=== PATIENT | male | born 1990 | race Caucasian/White ===

== ENCOUNTER 2016-08-26 19:09 | Emergency (ER) | payer MEDICARE, OTHER ==
[~2016-08-26] VITALS: Ht 167.6 cm; Wt 93.4 kg
[~2016-08-26 19:09] MED LIST: DIVA500T PO; TOPI200T7 PO
[2016-08-26 19:30] VITALS: BP 160/110; PULSE 95; RESP 20; TEMP 99.1; O2SAT 100
--- NOTE | 2016-08-26 21:00 | PD ---
HPI Chief Complaint: Musculoskeletal Complaint Time Seen by Provider: 21:00 Travel History International Travel<30 days: No Contact w/Intl Traveler<30days: No Traveled to known affect area: No History of Present Illness HPI 25-year-old male with PMH of seizure disorder secondary to "inoperable brain tumor" presents to the ED for evaluation of 2 day history of dental pain. Patient states that he had a seizure 2 days ago and landed, striking his face in the process. States that since that time he has had pain in the front teeth that radiates towards the right ear. He denies fever or chills, malocclusion, neck pain, numbness, tingling, weakness of the extremities. He endorses chronic headaches, no worsened over the last few days. He states that he is out of Depakote and Topamax. States that he has not taken his medications for approximately 3 weeks due to difficulties finding a primary care provider. Denies other chronic health problems, takes no daily medications. NKDA. PFSH Past Medical History Cancer: Yes (BRAIN) Seizures: Yes Influenza Vaccination: No Past Surgical History Other Surgery: Yes (SX TO BRAIN FOR TUMOR) Social History Alcohol Use: No Tobacco Use: Yes (1/2 ppd) Substance Use: No Allergies-Medications (Allergen,Severity, Reaction): Coded Allergies: No Known Allergies (Unverified , 05/16/16) Reported Meds & Prescriptions Reported Meds & Active Scripts Active Magic Mouthwash Adult Liq (Multi-Ingredient Mouthwash/Gargle) 120 Ml Susp 10 Ml SWISH-SWAL ACHS Each 5mL contains: Nystatin 200,000units, Diphenhydramine 4.25mg, Viscous Lidocaine 10mg, Haque syrup 0.8 mL Ibuprofen 800 Mg Tab 800 Mg PO Q8H PRN Divalproex DR (Divalproex Sodium) 500 Mg Tabdr 500 Mg PO TID Clindamycin (Clindamycin HCl) 300 Mg Cap 300 Mg PO Q6H 10 Days Topiramate 200 Mg Tab 200 Mg PO BID Divalproex DR (Divalproex Sodium) 500 Mg Tabdr 1,000 Mg PO HS Divalproex DR (Divalproex Sodium) 500 Mg Tabdr 500 Mg PO DAILY Review of Systems Except as stated in HPI: all other systems reviewed are Neg Physical Exam Narrative GENERAL: Well-nourished, well-developed white male in no acute distress. Sitting up in bed, chatting with his visitor. SKIN: Warm and dry. Thorough evaluation reveals no edema, ecchymosis, abrasion , or laceration of the skin. HEAD: Normocephalic. Atraumatic. No raccoon eyes or archuleta sign. No tenderness to palpation of the facial bones or skull. No bony step-offs. No malocclusion of the teeth. EYES: No scleral icterus. No injection or drainage. PERRLA. EOMI. ENT: Pearly trinh tympanic membrane is bilaterally. Nasal mucosa is moist. Oropharynx without erythema, edema or exudate. DENTAL: Terrible dentition overall. There are several dental caries and teeth eroded to the gumline. Teeth 8 and 9 are completely black. The gingiva surrounding tooth 8 is tender, mildly erythematous with a scant amount of purulent drainage present. No mobility of the alveolar ridge. NECK: Supple, trachea midline. No JVD or lymphadenopathy. No midline tenderness to palpation. Patient retains full, active, painless range of motion of the neck. CARDIOVASCULAR: Regular rate and rhythm without murmurs, gallops, or rubs. 2+ DP and radial pulses bilaterally. RESPIRATORY: Breath sounds clear and equal bilaterally. No accessory muscle use. GASTROINTESTINAL: Abdomen soft, non-tender, nondistended. + Bowel sounds MUSCULOSKELETAL: No cyanosis, or edema. No tenderness to palpation or limitations to range of motion of the joints of the upper and lower extremities bilaterally. NEUROLOGICAL: Awake and alert. Cranial nerves II through XII intact. Motor and sensory grossly within normal limits. 5/5 muscle strength in all muscle groups. Normal speech. BACK: Nontender without obvious deformity. No CVA tenderness. No midline tenderness. Data Data Last Documented VS Vital Signs Date Time Temp Pulse Resp B/P Pulse Ox O2 Delivery O2 Flow Rate FiO2 08/26/16 19:30 99.1 95 20 160/110 100 Orders Topiramate (Topamax) (08/26/16 21:14) Valproic Acid (Depakene) (08/26/16 21:14) Clindamycin (Cleocin) (08/26/16 21:15) Tramadol (Ultram) (08/26/16 21:15) Labs Laboratory Tests Test 08/26/16 21:30 Valproic Acid (Depakene) Level LESS THAN 3 MCG/ML MDM Medical Decision Making Medical Screen Exam Complete: Yes Emergency Medical Condition: Yes Differential Diagnosis facial fracture versus dental abscess versus medication noncompliance versus other Narrative Course 25-year-old male with PMH of seizure disorder secondary to "inoperable brain tumor" presents to the ED for evaluation of 2 day history of dental pain. Patient states that he had a seizure 2 days ago and landed, striking his face in the process. States that since that time he has had pain in the front teeth that radiates towards the right ear. He denies fever or chills, malocclusion, neck pain, numbness, tingling, weakness of the extremities. He endorses chronic headaches, no worsened over the last few days. He states that he is out of Depakote and Topamax. Vitals reviewed. Physical exam reveals terrible overall dentition. There are several dental caries in teeth eroded to the gumline. Teeth 8 and 9 are completely black. The gingiva surrounding tooth 8 is mildly erythematous, tender, there is scant amount of purulent drainage present. No mobility of the alveolar ridge. Physical exam is otherwise completely unremarkable. I offered the patient radiological studies of the facial bones which he collided this time. Topamax and Depakote levels were drawn, however these results will not be available in a timely fashion. I discussed the situation with Dr. De La Rosa who recommended writing one week's prescription for Depakote and having the patient follow-up with the PCP. Patient was administered a single dose of clindamycin and tramadol in the ED. He is described 300 mg clindamycin 4 times a day 10 days. Also prescribed a short course of anti-inflammatory medications He was provided information about the patient assistance program and community resources for dental treatment. Patient is instructed take the medications as prescribed, follow up with the patient assistance program as discussed. Patient is mother indicated understanding of instructions and are amenable to plan of care. Patient stable discharge home. Diagnosis Primary Impression: Seizure disorder Additional Impression: Dental abscess Referrals: Dentist Neurologist Primary Care Physician Patient Instructions: Dental Abscess (ED), General Instructions, Recurrent Seizures in Adults (ED) Additional Instructions: Rest, hydrate. Take all antibiotics as prescribed, even your symptoms resolved. 800 ibuprofen up to 3 times a day as needed for pain. Magic mouthwash swish and swallow or spit 3-4 times a day as needed for pain. Take Depakote as prescribed. Follow-up with the patient assistance program as discussed. Follow-up with the dentist as discussed. Return to the ED for any urgent or emergent medical condition. Med/Other Pt SpecificInfo: Prescription(s) given Scripts Wgonqnng-Gzyoxszhdlxxuuv-Ywdfphwyi Liq (Magic Mouthwash Adult Liq)120 Ml Susp10 Ml SWISH-SWAL ACHS #120 ML Ref 0 Each 5mL contains: Nystatin 200,000units, Diphenhydramine 4.25mg, Viscous Lidocaine 10mg, Haque syrup 0.8 mL Prov:Olegario De La Rosa MD 08/26/16 Ibuprofen 800 Mg [id number] Mg PO Q8H PRN (Pain/Inflammation) #20 TAB Ref 0 Prov:Olegario De La Rosa MD 08/26/[address] 500 Mg [id number] Mg PO TID #21 TAB Ref 0 Prov:Olegario De La Rosa MD 08/26/16 Clindamycin 300 Mg [id number] Mg PO Q6H 10 Days Ref 0 Prov:Olegario De La Rosa MD 08/26/16 Disposition: 01 DISCHARGE HOME Condition: Stable Gina Cortes Aug 26, 2016 21:00
[2016-08-26] MEDS ORDERED: traMADol HCL 50 MG TAB PO ONE (21:15)
[2016-08-26] MEDS ORDERED: CLINDAMYCIN 150 MG CAP PO SCH (21:15)
[2016-08-26] MEDS ORDERED: IBUP800T23 PO (21:52)
[2016-08-26] MEDS ORDERED: DIVA500T PO (21:52)
[2016-08-26] MEDS ORDERED: CLIN1CAP6 PO (21:52)
[2016-08-26] MEDS ORDERED: MAGICADU2 SWISH-SWAL (21:53)
== END 2016-08-26 22:02 | disposition home or self-care (01) ==
LOC: PHED 19:09 → PHEFT 22:02
DX: R56.9 Unspecified convulsions (principal); K04.7 Periapical abscess without sinus; C71.9 Malignant neoplasm of brain, unspecified
CPT/HCPCS: 80164; 80201; 99283

== ENCOUNTER 2017-02-26 17:48 | Inpatient (IN) | payer MEDICARE, OTHER ==
[~2017-02-26] VITALS: Ht 167.6 cm; Wt 89.9 kg
[~2017-02-26 17:48] MED LIST changes: +CLIN1CAP6 PO; +IBUP800T23 PO; +MAGICADU2 SWISH-SWAL
[2017-02-26 18:17] VITALS: BP 124/79; PULSE 124; RESP 16; TEMP 98.2; O2SAT 96
[2017-02-26] MEDS ORDERED: SODIUM CHLOR 0.9% 1000 ML INJ 1,000 ML IV ONE (18:30)
[2017-02-26] MEDS ORDERED: SODIUM CHLORIDE 0.9% FLUSH 10 ML FLUSH IVF PRN (18:30)
[2017-02-26] MEDS ORDERED: LORazepam 2 MG/ML VIAL IVS ONE (18:30)
[2017-02-26] MEDS ORDERED: DEXAMETHASONE SOD PHOS 20 MG/5 ML VIAL IV PUSH ONE (18:30)
--- NOTE | 2017-02-26 18:30 | PD ---
HPI Chief Complaint: Seizure Time Seen by Provider: 18:20 Travel History International Travel<30 days: No Contact w/Intl Traveler<30days: No Traveled to known affect area: No History of Present Illness HPI 26-year-old male brought into the emergency Department with history of seizures and witnessed grand mal seizure earlier today. 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 Patient en route to [place] in 2016 and recently was seen by Dr. Fagan. Patient is currently on Decadron 4 mg 3 times a day as well as Divalproex DR (Divalproex Sodium) 500 Mg Tabdr 500 Mg PO TID with an additional 500 at daily at bedtime. Patient continues to have daily headaches and is also on Topamax 200 mg twice a day. Patient denies any specific injury but continues to have generalized body aches and headache status post seizure. He smokes approximately half a pack per day which she has for the past 17 years. Patient had a recent MRI on January 16, 2017. Patient has been referred to the neurosurgeon for possible tumor resection. He has no known drug allergies. PFSH Past Medical History Cancer: Yes (BRAIN) Diminished Hearing: No Seizures: Yes Tetanus Vaccination: Unknown Influenza Vaccination: No ?: Not Past Surgical History Other Surgery: Yes (SX x2 BRAIN FOR TUMOR) Social History Alcohol Use: No Tobacco Use: Yes (1/2 ppd) Substance Use: No Allergies-Medications (Allergen,Severity, Reaction): Coded Allergies: morphine (Unverified Allergy, Unknown, Nausea/Vomiting, 02/27/17) PER PATIENT levetiracetam (Verified Adverse Reaction, Intermediate, patient states worsen seizures, 02/26/17) Reported Meds & Prescriptions Reported Meds & Active Scripts Active Reported [seizure med] Review of Systems Except as stated in HPI: all other systems reviewed are Neg General / Constitutional: No: Fever, Chills Eyes: Positive: Blurred Vision (which she says is typical status post seizure.) , No: Diploplia, Photophobia, Drainage, Redness, Foreign Body Sensation, Pain, Tearing, Blind Spots, Visual changes, Blindness HENT: No: Headaches Cardiovascular: No: Chest Pain or Discomfort Respiratory: No: Shortness of Breath Gastrointestinal: No: Abdominal Pain Genitourinary: No: Dysuria Musculoskeletal: No: Pain Skin: No Rash Neurologic: No: Weakness Psychiatric: No: Depression Endocrine: No: Polydipsia Hematologic/Lymphatic: No: Easy Bruising Physical Exam Exam Limitations: Poor Historian Narrative GENERAL: Patient appears in no acute distress. He is mildly postictal. He is alert and oriented 3. SKIN: Warm and dry. Normal color. Normal turgor. No obvious signs of trauma. HEAD: Atraumatic. Normocephalic. Nontender. EYES: Pupils equal and round. No scleral icterus. No injection or drainage. ENT: No nasal bleeding or discharge. Mucous membranes pink and moist. Poor dental health, but no acute signs of injury to the oral cavity or tongue. NECK: Trachea midline. No bony tenderness or step-off. Range of motion is full and supple. CARDIOVASCULAR: Regular rate and rhythm. RESPIRATORY: No accessory muscle use. Clear to auscultation. Breath sounds equal bilaterally. GASTROINTESTINAL: Abdomen soft, non-tender, nondistended. Hepatic and splenic margins not palpable. MUSCULOSKELETAL: Extremities without clubbing, cyanosis, or edema. No obvious deformities. NEUROLOGICAL: Awake and alert. No obvious cranial nerve deficits. Motor grossly within normal limits. Five out of 5 muscle strength in the arms and legs. Normal speech. PSYCHIATRIC: Appropriate mood and affect; insight and judgment normal. Data Data Last Documented VS Vital Signs Date Time Temp Pulse Resp B/P (MAP) Pulse Ox O2 Delivery O2 Flow Rate FiO2 02/26/17 19:53 96 02/26/17 19:53 94 140/77 (98) 02/26/17 18:17 98.2 16 Orders Orders Complete Blood Count With Diff (02/26/17 18:30) Drug Screen, Random Urine (02/26/17 18:30) Blood Glucose (02/26/17 18:30) Ecg Monitoring (02/26/17 18:30) Iv Access Insert/Monitor (02/26/17 18:30) Oximetry (02/26/17 18:30) Comprehensive Metabolic Panel (02/26/17 18:30) Sodium Chlor 0.9% 1000 Ml Inj (Ns 1000 M (02/26/17 18:30) Sodium Chloride 0.9% Flush (Ns Flush) (02/26/17 18:30) Lorazepam Inj (Ativan Inj) (02/26/17 18:30) Urinalysis - C+S If Indicated (02/26/17 18:30) Dexamethasone Inj (Decadron Inj) (02/26/17 18:30) Ct Brain W/O Iv Contrast(Rout) (02/26/17 18:36) Valproic Acid (Depakene) (02/26/17 18:45) Mri Brain W&W/O Contrast (02/26/17 19:22) Dexamethasone Inj (Decadron Inj) (02/27/17 00:00) Levetiracetam 1000 Mg Inj (Keppra 1000 M (02/26/17 20:00) ^ Seizure Precautions (02/26/17 19:47) Admit To Inpatient (02/26/17 ) Code Status (02/26/17 19:48) Vital Signs (Adult) YAZMIN.Q1H (02/26/17 19:48) Activity Bed Rest (02/26/17 19:48) Elevate Head Of Bed (02/26/17 19:48) Neuro Checks . ORDERED (02/26/17 19:48) Intake + Output Q1H (02/26/17 19:48) Bedside Glucose YAZMIN.BGM (02/26/17 19:48) Sodium Chlor 0.9% 1000 Ml Inj (Ns 1000 M (02/26/17 19:48) Sodium Chloride 0.9% Flush (Ns Flush) (02/26/17 20:00) Sodium Chloride 0.9% Flush (Ns Flush) (02/26/17 21:00) Acetaminophen (Tylenol) (02/26/17 20:00) Acetamin-Hydrocod 325-5 Mg ([place] 5-325 (02/26/17 20:00) Morphine Inj (Morphine Inj) (02/26/17 20:00) Pantoprazole (Protonix) (02/27/17 09:00) Midazolam Inj (Versed Inj) (02/26/17 20:00) Artificial Tears Opth Soln (Tears Natura (02/27/17 09:00) Ondansetron Inj (Zofran Inj) (02/26/17 20:00) Albuterol Neb (Albuterol Neb) (02/26/17 20:00) Complete Blood Count With Diff (02/27/17 04:00) Comprehensive Metabolic Panel (02/27/17 04:00) Act Partial Throm Time (Ptt) (02/27/17 04:00) Prothrombin Time / Inr (Pt) (02/27/17 04:00) Magnesium (Mg) (02/27/17 04:00) Phosphorus (Po4) (02/27/17 04:00) Electrocardiogram (02/26/17 ) Portable Eeg (02/26/17 ) Resp Incentive Spirometry (02/26/17 ) Resp Oxygen Mick C Titrat 1-4 L (02/26/17 ) Pt Request For Service (02/26/17 19:48) Regional Clinical Director / Telemetry YAZMIN.Q8H (02/26/17 19:48) Scd Bilateral/Knee High YAZMIN.BID (02/26/17 19:48) ^ Initiate Protocol (02/26/17 19:48) Instruction (02/26/17 19:48) [facility] Information (02/26/17 20:00) Chlorhexidine 2% Cloth (Chlorhexidine 2% (02/27/17 04:00) Chlorhexidine 2% Cloth (Chlorhexidine 2% (02/26/17 20:00) Mrsa Pcr Surveillance (02/26/17 19:48) Docusate Sodium-Senna (Jacquelin-Colace) (02/26/17 21:00) Magnesium Hydroxide Liq (Milk Of Magnesi (02/26/17 20:00) Sennosides (Senokot) (02/26/17 20:00) Bisacodyl Supp (Dulcolax Supp) (02/26/17 20:00) Lactulose Liq (Lactulose Liq) (02/26/17 20:00) Inpatient Certification (02/26/17 ) Levetiracetam Inj (Keppra Inj) (02/27/17 08:00) Admit Order (Ed Use Only) (02/26/17 20:14) Labs Laboratory Tests Test 02/26/17 18:29 White Blood Count 13.5 TH/MM3 Red Blood Count 4.91 MIL/MM3 Hemoglobin 14.5 GM/DL Hematocrit 42.8 % Mean Corpuscular Volume 87.1 FL Mean Corpuscular Hemoglobin 29.4 PG Mean Corpuscular Hemoglobin Concent 33.8 % Red Cell Distribution Width 12.2 % Platelet Count 296 TH/MM3 Mean Platelet Volume 8.5 FL Neutrophils (%) (Auto) 70.2 % Lymphocytes (%) (Auto) 16.9 % Monocytes (%) (Auto) 7.1 % Eosinophils (%) (Auto) 5.4 % Basophils (%) (Auto) 0.4 % Neutrophils # (Auto) 9.4 TH/MM3 Lymphocytes # (Auto) 2.3 TH/MM3 Monocytes # (Auto) 1.0 TH/MM3 Eosinophils # (Auto) 0.7 TH/MM3 Basophils # (Auto) 0.1 TH/MM3 CBC Comment DIFF FINAL Differential Comment Blood Urea Nitrogen 6 MG/DL Creatinine 1.20 MG/DL Random Glucose 89 MG/DL Total Protein 7.6 GM/DL Albumin 3.8 GM/DL Calcium Level 8.9 MG/DL Alkaline Phosphatase 100 U/L Aspartate Amino Transf (AST/SGOT) 9 U/L Alanine Aminotransferase (ALT/SGPT) 17 U/L Total Bilirubin 0.4 MG/DL Sodium Level 139 MEQ/L Potassium Level 3.6 MEQ/L Chloride Level 106 MEQ/L Carbon Dioxide Level 22.0 MEQ/L Anion Gap 11 MEQ/L Estimat Glomerular Filtration Rate 72 ML/MIN Valproic Acid (Depakene) Level 4 MCG/ML MDM Medical Decision Making Medical Screen Exam Complete: Yes Emergency Medical Condition: Yes Medical Record Reviewed: Yes Differential Diagnosis History of brain tumor with seizure. Seizure disorder. Possible worsening brain tumor. Intracranial bleed. Narrative Course Patient appears medically stable at time of exam. Patient's medical record is reviewed showing brain tumor since AGE 14 with 2 resections in the past, recently seen by Dr. Fagan, the oncologist who has referred the patient to neurosurgery. Medications appear to be Decadron 4 mg 3 times daily with food Topamax 200 mg twice a day, and Divalproex 500mg TID with additional 500mg QHS. Patient was discussed with the oncologist personnel representative Dr. Jiménez. Labs ordered including CBC, CMP, urinalysis, urine drug screen. CT of the brain is ordered. CT shows: Large area of vasogenic pattern edema of both frontal lobes as discussed above concerning for underlying mass, presumably a recurrence in this patient with history of brain tumor and craniotomy. Several millimeters leftward midline shift. I don't have any pertinent priors by the craniotomy appears to have been done quite some time ago. MRI of the brain with and without contrast is recommended. IV access is obtained and the patient is given 1 mg lorazepam IV as well as 1000 mL's normal saline bolus. Patient also discussed with Dr. Guaman who agrees with the above plan. Transfer to the [facility] and [place] may be pending as recommended by Dr. Jiménez. Call was placed to Dr. Jang, the neurosurgeon on-call and the patient was discussed. He recommended starting the patient on Decadron 4 mg every 6 hours, MRI with and without contrast, and admission to [facility] to the critical care service under the model maker scale. Consult will be placed to Dr. Jang for following the patient. 1934 hrs. call was placed to Dr. Schreiber, the [facility] at the [facility]. 1739 hrs. patient was discussed with Dr. Schreiber, who stated he would accept the patient under the critical care service once MRI and transport has been arranged. CBC shows slight leukocytosis of 13.5. Neutrophils are 70.2% CMP unremarkable. Valproic acid is level is 4. MRI shows infiltrating bifrontal, corpus callosum and basal ganglia lesion but with only a small, faintly enhancing focus. 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 Patient has had previous right craniotomy. Lymphoma couldn't appears similar. Associated 7 mm of leftward midline shift. 2200 hrs. patient attempted to leave A, but was convinced to stay after speaking with Dr. Guaman. Patient is currently awaiting transport to the [facility] in [facility]. Diagnosis Primary Impression: Brain tumor Additional Impression: Seizure disorder Admitting Information Admitting Physician Requests: Admit Condition: Stable Chau Casas Feb 26, 2017 18:30
[2017-02-26] MEDS ORDERED: seizure med (18:35)
[2017-02-26 18:56] LABS: AUTOMATED NEUTROPHIL # 9.4 TH/MM3 (1.8-7.7); BASOPHIL # 0.1 TH/MM3 (0-0.2); BASOPHIL % 0.4 % (0.0-2.0); EOSINOPHIL # 0.7 TH/MM3 (0-0.4); EOSINOPHIL % 5.4 % (0.0-4.0); HEMATOCRIT 42.8 % (39.0-51.0); HEMO FLAGS DIFF FINAL; LYMPH % 16.9 % (9.0-44.0); LYMPHOCYTE # 2.3 TH/MM3 (1.0-4.8); MEAN CELL VOLUME 87.1 FL (80.0-100.0); MEAN CORPUSCULAR HEMOGLOBIN 29.4 PG (27.0-34.0); MEAN CORPUSCULAR HGB CONC 33.8 % (32.0-36.0); MONO % 7.1 % (0.0-8.0); NEUT % 70.2 % (16.0-70.0); PLATELET COUNT 296 TH/MM3 (150-450); RED BLOOD COUNT 4.91 MIL/MM3 (4.50-5.90); RED CELL DISTRIBUTION WIDTH 12.2 % (11.6-17.2); WHITE BLOOD COUNT 13.5 TH/MM3 (4.0-11.0)
[2017-02-26 19:03] LABS: CHLORIDE 106 MEQ/L (98-107); POTASSIUM 3.6 MEQ/L (3.5-5.1); SODIUM (NA) 139 MEQ/L (136-145)
[2017-02-26 19:07] LABS: ANION GAP 11 MEQ/L (5-15)
[2017-02-26 19:08] LABS: BLOOD UREA NITROGEN 6 MG/DL (7-18)
--- NOTE | 2017-02-26 19:08 | RADRPT ---
EXAM DATE/TIME: 02/26/2017 18:54 [facility] COMPARISON: No previous studies available for comparison. INDICATIONS : Seizure. RADIATION DOSE: 62.69 CTDIvol (mGy) MEDICAL HISTORY : Seizures. Brain tumor. SURGICAL HISTORY : Craniotomy. ENCOUNTER: Initial ACUITY: 1 day PAIN SCALE: 0/10 LOCATION: cranial TECHNIQUE: Multiple contiguous axial images were obtained of the head. Using automated exposure control and adj ustment of the mA and/or kV according to patient size, radiation dose was kept as low as reasonably a chievable to obtain optimal diagnostic quality images. DICOM format image data is available electro nically for review and comparison. FINDINGS: Large area of vasogenic edema involves the bilateral frontal lobes, right worse than left. There is l ow attenuation of the anterior portions of the corpus callosum. An underlying mass is suspected and g iven that it appears to cross the midline, lymphoma and glioblastoma multiforme are main diagnostic c onsiderations. There are a few millimeters of leftward midline shift. No bleed. No evidence of an acute ischemic event. Previous right frontal craniotomy appears to have been done quite remotely. CONCLUSION: Large area of vasogenic pattern edema of both frontal lobes as discussed above concerning for an unde rlying mass, presumably a recurrence in this patient with a history of brain tumor and craniotomy. Se veral millimeters of leftward midline shift. I don't have any pertinent priors by the craniotomy appe ars to have been done quite some time ago. MRI of the brain with and without contrast is recommended. Marvin Tristan MD on February 26, 2017 at 19:03 Board Certified Radiologist. This report was verified electronically.
[2017-02-26 19:10] LABS: ALT (GPT) 17 U/L (12-78)
[2017-02-26 19:11] LABS: AST (GOT) 9 U/L (15-37); GLOMERULAR FILTRATION RATE 72 ML/MIN (>89)
[2017-02-26 19:12] LABS: TOTAL BILIRUBIN ADULT 0.4 MG/DL (0.2-1.0)
[2017-02-26 19:13] LABS: ALKALINE PHOSPHATASE 100 U/L (45-117)
[2017-02-26 19:53] VITALS: BP 140/77; PULSE 94; O2SAT 96
[2017-02-26] MEDS ORDERED: MISCELLANEOUS NURSING INFORMATION XX SCH (20:00)
[2017-02-26] MEDS ORDERED: RESP: ALBUTEROL 2.5 MG/3 ML NEB (PRN) INH (20:00)
[2017-02-26] MEDS ORDERED: LACTULOSE SYRUP 20 GM/30 ML CUP PO PRN (20:00)
[2017-02-26] MEDS ORDERED: ACETAMINOPHEN 325 MG TAB PO PRN (20:00)
[2017-02-26] MEDS ORDERED: levETIRAcetam 1000 MG INJ 100 ML IV ONE (20:00)
[2017-02-26] MEDS ORDERED: BISACODYL 10 MG SUPP RECTAL PRN (20:00)
[2017-02-26] MEDS ORDERED: MIDAZOLAM HCL 2 MG/2 ML VIAL IV PUSH PRN (20:00)
[2017-02-26] MEDS ORDERED: CHLORHEXIDINE GLUCONATE 2 % 1 PACK (2 CLOTHS) TOP PRN (20:00)
[2017-02-26] MEDS ORDERED: ONDANSETRON HCL 4 MG/2 ML VIAL IV PUSH PRN (20:00)
[2017-02-26] MEDS ORDERED: MAGNESIUM HYDROXIDE SUSP 30 ML CUP PO PRN (20:00)
[2017-02-26] MEDS ORDERED: MORPHINE SULFATE 4 MG/ML INJ IV PUSH PRN (20:00)
[2017-02-26] MEDS ORDERED: SENNOSIDES 8.6 MG TAB PO PRN (20:00)
[2017-02-26] MEDS: SODIUM CHLOR 0.9% 1000 ML INJ 1,000 ML IV SCH (20:20)
[2017-02-26] MEDS ORDERED: FOSPHENYTOIN INJ 1,000 MGPE in SODIUM CHLORIDE 0.9% INJ 50 ML IV ONE (20:30)
[2017-02-26] MEDS: SODIUM CHLORIDE 0.9% FLUSH 10 ML FLUSH IV FLUSH SCH (21:00)
[2017-02-26] MEDS ORDERED: GADODIAMIDE PF 287 MG/ML 20 ML VIAL (for RAD MRI) IVCONTRAST ONE (21:02)
[2017-02-26 21:16] VITALS: BP 129/91; PULSE 91; O2SAT 97
[2017-02-26] MEDS ORDERED: NICOTINE 14 MG/24 HR PATCH T-DERMAL ONE (21:30)
--- NOTE | 2017-02-26 21:41 | RADRPT ---
EXAM DATE/TIME: 02/26/2017 21:04 [facility] COMPARISON: No previous studies available for comparison. INDICATIONS : Seizures. CONTRAST: 18 cc Omniscan (gadodiamide) IV MEDICAL HISTORY : Carcinoma brain. SURGICAL HISTORY : Craniotomy. ENCOUNTER: Initial ACUITY: 1 day PAIN SCORE: 0/10 LOCATION: cranial TECHNIQUE: Multiplanar, multisequence MRI of the brain was performed both prior to and following the administrat ion of paramagnetic contrast. FINDINGS: Very large area of flair signal abnormality and cerebral edema seen of both frontal lobes and extendi ng posteriorly along the midline to involve the corpus callosum and right greater the left basal gang suman. The area of involvement is approximately 8.5 x 11.1 x 7.3 cm in size and presumably related to a large infiltrating tumor. There is some patchy moderately restricted diffusion within the region. No fluid collections are demonstrated. There is only a small focus of faint subdural enhancement noted within the area, right frontal lobe series 12 image 12 measuring 8 x 13 mm. There is approximately 7 mm of leftward midline shift. Patient has had previous right craniotomy. CONCLUSION: 1. Infiltrating bifrontal, corpus colossal and basal ganglia lesion but with only a small, faintly en hancing focus. 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 Patient has had previ ous right craniotomy. Lymphoma could appear similar. 2. Associated 7 mm of leftward midline shift. Marvin Tristan MD on February 26, 2017 at 21:35 Board Certified Radiologist. This report was verified electronically.
[2017-02-26] MEDS ORDERED: FOSPHENYTOIN SODIUM 100 MG PE/2 ML VIAL IV SCH (22:00)
[2017-02-26] MEDS: lamoTRIgine 100 MG TAB PO SCH (22:19)
[2017-02-26] MEDS: DOCUSATE SODIUM 50 MG/SENNA 8.6 MG TAB PO SCH (22:19)
[2017-02-26 22:31] LABS: GLUCOSE,URINE NEG (NEG); KETONE, URINE NEG (NEG); NITRITE,URINE NEG (NEG)
[2017-02-26 22:32] LABS: BLOOD, URINE TRACE (NEG)
[2017-02-26 22:45] LABS: URINE COLOR YELLOW (YELLW/STRAW)
[2017-02-26 22:46] LABS: COMMENT (UR) CULT NOT INDICATED; CULTURE IF INDICATED CULT NOT INDICATED; SQUAMOUS EPITHELIAL CELL URINE 0-5 /hpf (0-5); WBC, URINE 0-2 /hpf (0-5)
[2017-02-27] VITALS (10 sets, daily range): BP systolic 118–137; BP diastolic 58–89; PULSE 78–94; RESP 18–23; TEMP 97.9–98.1; O2SAT 93–98
[2017-02-27] MEDS: DEXAMETHASONE SOD PHOS 4 MG/ML VIAL IV PUSH SCH ×4 (00:58→17:30)
--- NOTE | 2017-02-27 00:58 | HHI.HP ---
HPI Service Critical Care Medicine Primary Care Physician Unknown Admission Diagnosis Brain Tumor/Seizures Diagnosis: (1) Brain tumor Diagnosis: Principal (2) History of glioma Diagnosis: Principal (3) History of astrocytoma Diagnosis: Principal (4) Tobacco abuse Diagnosis: Principal (5) Seizure disorder Diagnosis: Principal (6) Leukocytosis Diagnosis: Principal Chief Complaint: Seizure Travel History International Travel<30 Days: No Contact w/Intl Traveler <30 Da: No Traveled to Known Affected Are: No History of Present Illness This is a 26-year-old male. Date of admission 02/27/2017. 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 Features with evolution towards world health organization grade 3 neoplasm. Patient had negative MRI of the brain March 2015. Recurrent sleep tumor in September 2015 in the basal ganglia and the right frontal lobe. Patient was referred oncology and radiation oncology. Their recommendation chemotherapy. Patient states his neurosurgeon recommended no further surgical intervention. Patient also has has his antiepileptic medications. Switch from Topamax and Depakote to Lamictal 50 mg twice a day currently. Today, patient presented to the [place] ED with seizures. CT brain revealed bilateral frontal masses record left. MRI of the brain revealed about 8.5 vital 1.1 x 7 bilateral frontal lobe mass with extension to the corpus callosum in the right greater than left basal ganglia. There is a 7 mm left shift. Neurosurgery was consulted. Recommended Decadron 4 mg IV every 6 hours which is currently on. And vice president admission. They will evaluate the patient today. Review of Systems Constitutional: DENIES: Fatigue, Fever, Weight gain, Weight loss Endocrine: DENIES: Polydipsia, Polyuria Eyes: COMPLAINS OF: Blurred vision, DENIES: Double Vision Ears, nose, mouth, throat: COMPLAINS OF: Toothache, DENIES: Tinnitus Respiratory: DENIES: Apneas, Snoring, Wheezing Cardiovascular: DENIES: Chest pain Gastrointestinal: DENIES: Abdominal pain Genitourinary: DENIES: Urgency, Hematuria Musculoskeletal: DENIES: Joint pain Integumentary: DENIES: Abnormal pigmentation Hematologic/lymphatic: DENIES: Bruising Immunologic/allergic: DENIES: Eczema Neurologic: COMPLAINS OF: Headache, Seizures, DENIES: Abnormal gait, Localized weakness Psychiatric: DENIES: Anxiety, Confusion, Mood changes Past Family Social History Allergies: Coded Allergies: morphine (Unverified Allergy, Unknown, Nausea/Vomiting, 02/27/17) PER PATIENT levetiracetam (Verified Adverse Reaction, Intermediate, patient states worsen seizures, 02/26/17) Past Medical History Anxiety Seizure disorder NOS Ganglioglioma World Health Organization grade 2 2005 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 Past Surgical History Craniotomy 2 [place] tooth extraction Reported Medications Lamotrigine 50 mg by mouth twice a day Active Ordered Medications Reviewed in EMR Family History Mother alive. Anxiety, arthritis, migraine. Father is alive. PA and CVA. One brother is alive. One sister is alive. Social History One half a pack per day 17 years. Occasional alcohol. Denies IV drug use. Physical Exam Vital Signs Vital Signs Date Time Temp Pulse Resp B/P (MAP) Pulse Ox O2 Delivery O2 Flow Rate FiO2 02/26/17 21:16 91 129/91 (104) 97 02/26/17 19:53 96 02/26/17 19:53 94 140/77 (98) 96 02/26/17 18:17 98.2 124 16 124/79 (94) 96 Physical Exam GENERAL: 26-year-old male, resting in bed in no acute distress SKIN: Warm and dry. No rash HEAD: Status post craniotomy 2. EYES: Pupils equal and round about 2 mm bilaterally and reactive. No scleral icterus. No injection or drainage. ENT: No nasal bleeding or discharge. Mucous membranes pink and moist. NECK: Trachea midline. No JVD. CARDIOVASCULAR: Regular rate and rhythm. S1, S2 no S4 RESPIRATORY:. Clear to auscultation. Breath sounds equal bilaterally. GASTROINTESTINAL: Abdomen soft, non-tender, nondistended. Hypoactive bowel sounds are appreciated MUSCULOSKELETAL: Extremities without significant peripheral edema. No obvious deformities. NEUROLOGICAL: Awake and alert. No obvious cranial nerve deficits. Motor grossly within normal limits. Five out of 5 muscle strength in the arms and legs. Normal speech. Laboratory Laboratory Tests Test 02/26/17 18:29 02/26/17 22:10 02/26/17 23:55 White Blood Count 13.5 Red Blood Count 4.91 Hemoglobin 14.5 Hematocrit 42.8 Mean Corpuscular Volume 87.1 Mean Corpuscular Hemoglobin 29.4 Mean Corpuscular Hemoglobin Concent 33.8 Red Cell Distribution Width 12.2 Platelet Count 296 Mean Platelet Volume 8.5 Neutrophils (%) (Auto) 70.2 Lymphocytes (%) (Auto) 16.9 Monocytes (%) (Auto) 7.1 Eosinophils (%) (Auto) 5.4 Basophils (%) (Auto) 0.4 Neutrophils # (Auto) 9.4 Lymphocytes # (Auto) 2.3 Monocytes # (Auto) 1.0 Eosinophils # (Auto) 0.7 Basophils # (Auto) 0.1 CBC Comment DIFF FINAL Differential Comment Blood Urea Nitrogen 6 Creatinine 1.20 Random Glucose 89 Total Protein 7.6 Albumin 3.8 Calcium Level 8.9 Alkaline Phosphatase 100 Aspartate Amino Transf (AST/SGOT) 9 Alanine Aminotransferase (ALT/SGPT) 17 Total Bilirubin 0.4 Sodium Level 139 Potassium Level 3.6 Chloride Level 106 Carbon Dioxide Level 22.0 Anion Gap 11 Estimat Glomerular Filtration Rate 72 Valproic Acid (Depakene) Level 4 Urine Color YELLOW Urine Turbidity CLEAR Urine pH 7.0 Urine Specific [place] 1.025 Urine Protein NEG Urine Glucose (UA) NEG Urine Ketones NEG Urine Occult Blood TRACE Urine Nitrite NEG Urine Bilirubin NEG Urine Leukocyte Esterase NEG Urine WBC 0-2 Urine Squamous Epithelial Cells 0-5 Microscopic Urinalysis Comment CULT NOT INDICATED Urine Opiates Screen NEG Urine Barbiturates Screen NEG Urine Amphetamines Screen NEG Urine Benzodiazepines Screen NEG Urine Cocaine Screen NEG Urine Cannabinoids Screen NEG Result Diagram: 02/26/17182802/26/171828 Imaging GENERAL: SKIN: Warm and dry. HEAD: Atraumatic. Normocephalic. EYES: Pupils equal and round. No scleral icterus. No injection or drainage. ENT: No nasal bleeding or discharge. Mucous membranes pink and moist. NECK: Trachea midline. No JVD. CARDIOVASCULAR: Regular rate and rhythm. RESPIRATORY: No accessory muscle use. Clear to auscultation. Breath sounds equal bilaterally. GASTROINTESTINAL: Abdomen soft, non-tender, nondistended. Hepatic and splenic margins not palpable. MUSCULOSKELETAL: Extremities without clubbing, cyanosis, or edema. No obvious deformities. NEUROLOGICAL: Awake and alert. No obvious cranial nerve deficits. Motor grossly within normal limits. Five out of 5 muscle strength in the arms and legs. Normal speech. PSYCHIATRIC: Appropriate mood and affect; insight and judgment normal. Caprini VTE Risk Assessment Caprini VTE Risk Assessment: Mod/High Risk (score >= 2) Caprini Risk Assessment Model Point Value = 1 Point Value = 2 Point Value = 3 Point Value = 5 Age 41-60 Minor surgery BMI > 25 kg/m2 Swollen legs Varicose veins or History of unexplained or recurrent spontaneous Oral contraceptives or hormone replacement Sepsis (< 1 month) Serious lung disease, including pneumonia (< 1 month) Abnormal pulmonary function Acute myocardial infarction Congestive heart failure (< 1 month) History of inflammatory bowel disease Medical patient at bed rest Age 61-74 Arthroscopic surgery Major open surgery (> 45 min) Laparoscopic surgery (> 45 min) Malignancy Confined to bed (> 72 hours) Immobilizing plaster cast Central venous access Age >= 75 History of VTE Family history of VTE Factor V Leiden Prothrombin [id number] Lupus anticoagulant Anticardiolipin antibodies Elevated serum homocysteine Heparin-induced thrombocytopenia Other congenital or acquired thrombophilia Stroke (< 1 month) Elective arthroplasty Hip, pelvis, or leg fracture Acute spinal cord injury (< 1 month) Prophylaxis Regimen Total Risk Factor Score Risk Level Prophylaxis Regimen 0-1 Low Early ambulation 2 Moderate Order ONE of the following: *Sequential Compression Device (SCD) *Heparin 5000 units SQ BID 3-4 Higher Order ONE of the following medications: *Heparin 5000 units SQ TID *Enoxaparin/Lovenox 40 mg SQ daily (WT < 150 kg, CrCl > 30 mL/min) *Enoxaparin/Lovenox 30 mg SQ daily (WT < 150 kg, CrCl > 10-29 mL/min) *Enoxaparin/Lovenox 30 mg SQ BID (WT < 150 kg, CrCl > 30 mL/min) AND/OR *Sequential Compression Device (SCD) 5 or more Highest Order ONE of the following medications: *Heparin 5000 units SQ TID (Preferred with Epidurals) *Enoxaparin/Lovenox 40 mg SQ daily (WT < 150 kg, CrCl > 30 mL/min) *Enoxaparin/Lovenox 30 mg SQ daily (WT < 150 kg, CrCl > 10-29 mL/min) *Enoxaparin/Lovenox 30 mg SQ BID (WT < 150 kg, CrCl > 30 mL/min) AND *Sequential Compression Device (SCD) Assessment and Plan Assessment and Plan Neuro/Psych: Seizure disorder NOS History of ganglioglioma 2005 resection History of astrocytoma 2013 resection Bilateral frontal corpus callosum/right greater left basal ganglia mass with vasogenic edema right to left shift 7 cm MRI brain 01/26 revealed 8.5 x 1.1 x 7 cm mass. This involves bilateral frontal lobes, corpus callosum, right greater than left basal ganglia. Is a leftward shift at 7 mm. Patient is currently on lamotrigine 50 mg by mouth twice a day at home. Increased to 100 milligrams twice a day. Loaded with fosphenytoin 1 g. Currently 100 mg IV 3 times a day. Check Phenytoin level in AM. Neurosurgical evaluation. Patient states he likely will refuse any intervention due to previous costs patient with previous neurosurgeons. Acetaminophen for fever Hydrocodone/acetaminophen for pain Seizure precautions CV: Patient is currently normal saline at 84 cc an hour. Not requiring vasopressors and/or antihypertensives Resp: Tobacco abuse Nicotine patch 21 mg daily. Nasal cannula to maintain saturations greater than equal to 92% incentive spirometry while awake GI: Patient is currently nothing by mouth Pantoprazole for GI prophylaxis Docusate sodium/senna for bowel regimen : No indication for Johnson catheter Endo: Sliding-scale insulin if indicated to maintain euglycemia. Patient is on Decadron Renal: Creatinine currently within normal limits Monitor urine output Accurate I's and O's Heme: Leukocytosis See neuro for brain tumors Follow CBC daily. Monitor trends. ID: Monitor for infection FEN: Replace electrolytes as clinically indicated MSK: Physical therapy evaluate and treat Access - Utilize peripheral IV. Central line if indicated Prophylaxis - GI - pantoprazole - DVT - SCD/holding pharmacological prophylaxis in light of head mass Level III admission Code Status Full code Discussed Condition With Patient. Care plan discussed and all questions answered. Problem Qualifiers (1) Leukocytosis: Qualified Codes: D72.829 - Elevated white blood cell count, unspecified Elmer Schreiber MD Feb 27, 2017 00:58
[2017-02-27] MEDS ORDERED: DEXTROSE 50% IN WATER 50 ML VIAL(D50) IV PRN (02:30)
[2017-02-27] MEDS ORDERED: GLUCAGON 1 MG/ML VIAL OTHER PRN (02:30)
[2017-02-27] MEDS: CHLORHEXIDINE GLUCONATE 2 % 1 PACK (2 CLOTHS) TOP SCH (04:00)
[2017-02-27] MEDS: FOSPHENYTOIN SODIUM 100 MG PE/2 ML VIAL IV SCH ×2 (05:35→13:04)
[2017-02-27] MEDS: SODIUM CHLOR 0.9% 1000 ML INJ 1,000 ML IV SCH ×2 (07:43→19:38)
[2017-02-27] MEDS: INSULIN NovoLIN REGULAR SUPPLEMENTAL SCALE SQ SCH ×4 (08:00→21:00)
[2017-02-27] MEDS ORDERED: levETIRAcetam INJ 500 MG in SODIUM CHLORIDE 0.9% INJ 100 ML IV SCH (08:00)
[2017-02-27] MEDS: ARTIFICIAL TEARS OPTH SOLN 15 ML BTL EACH EYE SCH ×3 (08:24→18:00)
[2017-02-27] MEDS: DOCUSATE SODIUM 50 MG/SENNA 8.6 MG TAB PO SCH ×2 (08:25→20:27)
[2017-02-27] MEDS: SODIUM CHLORIDE 0.9% FLUSH 10 ML FLUSH IV FLUSH SCH ×2 (09:00→21:03)
[2017-02-27] MEDS: lamoTRIgine 100 MG TAB PO SCH ×2 (09:09→20:27)
[2017-02-27] MEDS: PANTOPRAZOLE SOD 40 MG DELAYED RELEASE TAB PO SCH (09:09)
[2017-02-27 10:33] LABS: AUTOMATED NEUTROPHIL # 11.6 TH/MM3 (1.8-7.7); BASOPHIL % 0.2 % (0.0-2.0); HEMATOCRIT 45.6 % (39.0-51.0); HEMO FLAGS DIFF FINAL; LYMPH % 13.2 % (9.0-44.0); LYMPHOCYTE # 1.8 TH/MM3 (1.0-4.8); MEAN CELL VOLUME 88.1 FL (80.0-100.0); MEAN CORPUSCULAR HEMOGLOBIN 29.9 PG (27.0-34.0); MONO % 2.3 % (0.0-8.0); NEUT % 84.3 % (16.0-70.0); PLATELET COUNT 294 TH/MM3 (150-450); RED BLOOD COUNT 5.18 MIL/MM3 (4.50-5.90); RED CELL DISTRIBUTION WIDTH 13.2 % (11.6-17.2); WHITE BLOOD COUNT 13.8 TH/MM3 (4.0-11.0)
[2017-02-27 10:46] LABS: APTT (PATIENT) 27.6 SEC (24.3-30.1); PROTHROMBIN TIME - PATIENT 10.8 SEC (9.8-11.6)
[2017-02-27 10:59] LABS: ANION GAP 9 MEQ/L (5-15); AST (GOT) 8 U/L (15-37); BICARBONATE 21.7 MEQ/L (21.0-32.0); BLOOD UREA NITROGEN 7 MG/DL (7-18); CHLORIDE 107 MEQ/L (98-107); GLOMERULAR FILTRATION RATE 104 ML/MIN (>89); MAGNESIUM 2.1 MG/DL (1.5-2.5); POTASSIUM 4.3 MEQ/L (3.5-5.1); SODIUM (NA) 138 MEQ/L (136-145)
[2017-02-27 11:00] LABS: ALT (GPT) 18 U/L (12-78)
[2017-02-27 11:02] LABS: ALKALINE PHOSPHATASE 99 U/L (45-117); TOTAL BILIRUBIN ADULT 0.4 MG/DL (0.2-1.0)
--- NOTE | 2017-02-27 14:31 | PD.CONS ---
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 Features with evolution towards a grade 3 neoplasm. He had a negative MRI of the brain March 2015. Recurrent tumor in September 2015 in the basal ganglia and the right frontal lobe. He was referred to oncology and radiation oncology. Theiy recommended chemotherapy. Mr Castellanos states his neurosurgeon recommended no further surgical intervention. He has been taking antiepileptic medications. Switched from Topamax and Depakote to Lamictal 50 mg twice a day He presented to the [place] ED with seizures. CT brain revealed bilateral frontal masses. MRI of the brain revealed about 8.5 vital 1.1 x 7 bilateral frontal lobe mass with extension to the corpus callosum in the right greater than left basal ganglia. There is 7 mm left shift. Neurosurgery consultation was requested. Review of Systems Constitutional: DENIES: Fatigue, Fever, Weight gain, Weight loss Endocrine: DENIES: Polydipsia, Polyuria Eyes: COMPLAINS OF: Blurred vision, DENIES: Double Vision Ears, nose, mouth, throat: COMPLAINS OF: Toothache, DENIES: Tinnitus Respiratory: DENIES: Apneas, Snoring, Wheezing Cardiovascular: DENIES: Chest pain Gastrointestinal: DENIES: Abdominal pain Genitourinary: DENIES: Urgency, Hematuria Musculoskeletal: DENIES: Joint pain Integumentary: DENIES: Abnormal pigmentation Hematologic/lymphatic: DENIES: Bruising Immunologic/allergic: DENIES: Eczema Neurologic: COMPLAINS OF: Headache, Seizures, DENIES: Abnormal gait, Localized weakness Psychiatric: DENIES: Anxiety, Confusion, Mood changes Past Family Social History Allergies: Coded Allergies: morphine (Unverified Allergy, Unknown, Nausea/Vomiting, 02/27/17) PER PATIENT levetiracetam (Verified Adverse Reaction, Intermediate, patient states worsen seizures, 02/26/17) Past Medical History Anxiety Seizure disorder NOS Ganglioglioma World [employer] grade 2 2005 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 Past Surgical History Craniotomy with resection [place] craniotomy with resection [place] tooth extraction Reported Medications Lamotrigine 50 mg by mouth twice a day Active Ordered Medications Current Medications Sodium Chloride 1,000 ml @ 1,000 mls/hr Q1H ONCE IV Last administered on 19:12; Start 02/26/17 at 18:30; Stop 02/26/17 at 19:29; Status DC Sodium Chloride (NS Flush) 2 ml UNSCH PRN IVF FLUSH AFTER USING IV ACCESS; Start 02/26/17 at 18:30; Stop 02/26/17 at 19:53; Status DC Lorazepam (Ativan Inj) 1 mg ONCE ONCE IVS Last administered on 02/26/17 19:12 ; Start 02/26/17 at 18:30; Stop 02/26/17 at 18:32; Status DC Dexamethasone Sodium Phosphate (Decadron Inj) 10 mg ONCE ONCE IV PUSH Last administered on 02/26/17 19:12; Start 02/26/17 at 18:30; Stop 02/26/17 at 18:32 ; Status DC Dexamethasone Sodium Phosphate (Decadron Inj) 4 mg Q6HR IV PUSH Last administered on 02/27/17 12:00; Start 02/27/17 at 00:00 Levetriacetam 100 ml @ 400 mls/hr BOLUS ONCE IV ; Start 02/26/17 at 20:00; Stop 02/26/17 at 20:28; Status DC Levetriacetam 500 mg/Sodium Chloride 105 ml @ 420 mls/hr Q12H IV ; Start at 08:00; Stop 02/27/17 at 08:00; Status DC Sodium Chloride 1,000 ml @ 84 mls/hr [id number] IV Last administered on 20:20; Start 02/26/17 at 19:48 Sodium Chloride (NS Flush) 2 ml UNSCH PRN IV FLUSH FLUSH AFTER USING IV ACCESS ; Start 02/26/17 at 20:00 Sodium Chloride (NS Flush) 2 ml BID IV FLUSH Last administered on 02/27/17 09: 00; Start 02/26/17 at 21:00 Acetaminophen (Tylenol) 650 mg Q6H PRN PO FOR FEVER >101F; Start 02/26/17 at 20 :00 Acetaminophen/ Hydrocodone Bitart ([place] 5-325 Mg) 1 tab Q4H PRN PO PAIN SCALE 1 TO 5; Start 02/26/17 at 20:00 Morphine Sulfate (Morphine Inj) 2 mg Q2H PRN IV PUSH PAIN SCALE 6 TO 10; Start 02/26/17 at 20:00; Stop 02/27/17 at 02:18; Status DC Pantoprazole Sodium (Protonix) 40 mg DAILY PO Last administered on 02/27/17t 09 :09; Start 02/27/17 at 09:00 Midazolam HCl (Versed Inj) 2 mg Q1H PRN IV PUSH seizure; Start 02/26/17 at 20: 00 Artificial Tears (Tears Naturale Opth Soln) 1 drop TID EACH EYE ; Start at 09:00 Ondansetron HCl (Zofran Inj) 4 mg Q6H PRN IV PUSH NAUSEA OR VOMITING; Start 06/02 at 20:00 Albuterol Sulfate (Albuterol Neb) 2.5 mg Q2HR NEB PRN INH SOB/WHEEZING; Start 02/26/17 at 20:00 Miscellaneous Information 1 [id number] XX ; Start 02/26/17 at 20:00 Chlorhexidine Gluconate (Chlorhexidine 2% Cloth) 3 pack Taper DAILY@04 TOP ; Start 02/27/17 at 04:00; Stop 02/23/18 at 03:59 Chlorhexidine Gluconate (Chlorhexidine 2% Cloth) 3 pack UNSCH PRN TOP HYGIENIC CARE; Start 02/26/17 at 20:00 Senna/Docusate Sodium (Jacquelin-Colace) 1 tab BID PO Last administered on t 22:19; Start 02/26/17 at 21:00 Magnesium Hydroxide (Milk Of Magnesia Liq) 30 ml Q12H PRN PO MILD - MODERATE CONSTIPATION; Start 02/26/17 at 20:00 Sennosides (Senokot) 17.2 mg Q12H PRN PO MODERATE - SEVERE CONSTIPATION; Start 02/26/17 at 20:00 Bisacodyl (Dulcolax Supp) 10 mg DAILY PRN RECTAL SEVERE CONSITIPATION; Start at 20:00 Lactulose (Lactulose Liq) 30 ml DAILY PRN PO SEVERE CONSITIPATION; Start at 20:00 Lamotrigine (LaMICtal) 100 mg Q12HR PO Last administered on 02/27/17 09:09; Start 02/26/17 at 21:00 Fosphenytoin Sodium 1000 mgpe/ Sodium Chloride 70 ml @ 280 mls/hr ONCE ONCE IV Last administered on 02/26/17 22:15; Start 02/26/17 at 20:30; Stop at 20:44; Status DC Fosphenytoin Sodium (Cerebyx Inj) 100 mgpe Q8HR IV ; Start 02/26/17 at 22:00; Stop 02/26/17 at 22:51; Status DC Gadodiamide (Omniscan Pf Inj) 18 ml STK-MED ONCE IVCONTRAST Last administered on 02/26/17 21:02; Start 02/26/17 at 21:02; Stop 02/26/17 at 21:03; Status DC Nicotine (Habitrol 14 Mg Patch.24 Hr) 1 patch ONCE ONCE T-DERMAL Last administered on 02/26/17 22:19; Start 02/26/17 at 21:30; Stop 02/26/17 at 21:31 ; Status DC Fosphenytoin Sodium (Cerebyx Inj) 100 mgpe Q8HR IV Last administered on 13:04; Start 02/27/17 at 06:00 Dextrose (D50w (Vial) Inj) 50 ml UNSCH PRN IV HYPOGLYCEMIA-SEE COMMENTS; Start 02/27/17 at 02:30 Glucagon (Glucagon Inj) 1 mg UNSCH PRN OTHER HYPOGLYCEMIA-SEE COMMENTS; Start 02/27/17 at 02:30 Insulin Human Regular (NovoLIN R SUPPLEMENTAL SCALE) 1 ACHS SLIDING SCALE SQ Last administered on 02/27/17 13:05; Start 02/27/17 at 08:00 Family History Mother alive. Anxiety, arthritis, migraine. Father is alive. CO and CVA. One brother is alive. One sister is alive. Social History Smoke half a pack per day 17 years. Occasional alcohol. Denies IV drug use. Physical Exam Vital Signs Vital Signs Date Time Temp Pulse Resp B/P (MAP) Pulse Ox O2 Delivery O2 Flow Rate FiO2 9/13/17 09:05 96 21 02/27/17 08:00 97.9 88 23 137/78 (97) 02/27/17 07:00 Room Air 02/27/17 06:00 79 02/27/17 04:00 78 02/27/17 04:00 98.0 78 20 130/76 (94) 95 02/27/17 02:00 84 02/27/17 00:00 97.9 84 22 121/58 (79) 95 02/27/17 00:00 84 02/26/17 21:16 91 129/91 (104) 97 02/26/17 19:53 96 02/26/17 19:53 94 140/77 (98) 96 02/26/17 18:17 98.2 124 16 124/79 (94) 96 Physical Exam The patient is alert, awake and oriented to time, place and person. Speech is fluent. Higher cognitive functions are normal. Cranial nerve examination demonstrates the pupils to be equal, round, and reactive to light. No papiledema. Mild right sided visual field deficit. Extra- ocular movements are intact. Facial motor and sensory function are normal and symmetrical. Gross hearing is intact, bilaterally. The uvula is midline and elevates symmetrically with the soft palate. Sternocleidomastoid and trapezius muscles have normal and symmetrical strength. Other cranial nerves are intact. Neck is soft and supple. Cervical spine has a full range of motion in anterior flexion, extension, lateral bending, and rotation without pain. There is no tenderness to palpation to the spinous processes or paraspinal muscles. Muscle testing reveals normal bulk and tone overall without rigidity, spasticity , fasciculations, or atrophy. Muscle strength is 5/5 in all muscle groups of both upper extremities including deltoid, biceps, triceps, brachioradialis, wrist extension and senior manufacturing technician. In the lower extremities, strength is 5/5 in both iliopsoas, quadriceps, hamstrings, plantar flexion, dorsiflexion, and extensor hallicus longus. Sensory examination is intact to light touch and sharp/dull discrimination in both the upper and lower extremities, symmetrically. Deep tendon reflexes are 2+ and symmetrical in the biceps, triceps, and brachioradialis, bilaterally, in the upper extremities. In the lower extremities , the patellar and Achilles are 2+, bilaterally. There is a bilateral plantar flexion response. Hoffmanns sign is negative. There is no clonus or other abnormal reflexes noted. Cerebellar examination is intact to [id number] test, rapid rhythmic alternating motion. There is no dysmetria, dysdiadochokinesia, truncal ataxia, or tremor. Laboratory Laboratory Tests Test 02/26/17 18:29 02/26/17 22:10 02/26/17 23:55 02/27/17 10:07 White Blood Count 13.5 13.8 Red Blood Count 4.91 5.18 Hemoglobin 14.5 15.5 Hematocrit 42.8 45.6 Mean Corpuscular Volume 87.1 88.1 Mean Corpuscular Hemoglobin 29.4 29.9 Mean Corpuscular Hemoglobin Concent 33.8 34.0 Red Cell Distribution Width 12.2 13.2 Platelet Count 296 294 Mean Platelet Volume 8.5 8.7 Neutrophils (%) (Auto) 70.2 84.3 Lymphocytes (%) (Auto) 16.9 13.2 Monocytes (%) (Auto) 7.1 2.3 Eosinophils (%) (Auto) 5.4 0.0 Basophils (%) (Auto) 0.4 0.2 Neutrophils # (Auto) 9.4 11.6 Lymphocytes # (Auto) 2.3 1.8 Monocytes # (Auto) 1.0 0.3 Eosinophils # (Auto) 0.7 0.0 Basophils # (Auto) 0.1 0.0 CBC Comment DIFF FINAL DIFF FINAL Differential Comment Blood Urea Nitrogen 6 7 Creatinine 1.20 0.87 Random Glucose 89 110 Total Protein 7.6 7.7 Albumin 3.8 3.9 Calcium Level 8.9 9.7 Alkaline Phosphatase 100 99 Aspartate Amino Transf (AST/SGOT) 9 8 Alanine Aminotransferase (ALT/SGPT) 17 18 Total Bilirubin 0.4 0.4 Sodium Level 139 138 Potassium Level 3.6 4.3 Chloride Level 106 107 Carbon Dioxide Level 22.0 21.7 Anion Gap 11 9 Estimat Glomerular Filtration Rate 72 104 Valproic Acid (Depakene) Level 4 Urine Color YELLOW Urine Turbidity CLEAR Urine pH 7.0 Urine Specific [place] 1.025 Urine Protein NEG Urine Glucose (UA) NEG Urine Ketones NEG Urine Occult Blood TRACE Urine Nitrite NEG Urine Bilirubin NEG Urine Leukocyte Esterase NEG Urine WBC 0-2 Urine Squamous Epithelial Cells 0-5 Microscopic Urinalysis Comment CULT NOT INDICATED Urine Opiates Screen NEG Urine Barbiturates Screen NEG Urine Amphetamines Screen NEG Urine Benzodiazepines Screen NEG Urine Cocaine Screen NEG Urine Cannabinoids Screen NEG Nasal Screen MRSA (PCR) MRSA NOT DETECTED Prothrombin Time 10.8 Prothromb Time International Ratio 1.0 Activated Partial Thromboplast Time 27.6 Phosphorus Level 3.6 Magnesium Level 2.1 Phenytoin (Dilantin) Level 12.0 Result Diagram: 02/27/17 1007 02/27/17 1007 Imaging Last 48 hours Impressions Brain MRI 02/26/17 1922 Signed Impressions: Service Date/Time: Sunday, February 26, 2017 21:04 - CONCLUSION: 1. Infiltrating bifrontal, corpus colossal and basal ganglia lesion but with only a small, faintly enhancing focus. 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 Patient has had previous right craniotomy. Lymphoma could appear similar. 2. Associated 7 mm of leftward midline shift. Marvin Tristan MD Head CT 02/26/17 1836 Signed Impressions: Service Date/Time: Sunday, February 26, 2017 18:54 - CONCLUSION: Large area of vasogenic pattern edema of both frontal lobes as discussed above concerning for an underlying mass, presumably a recurrence in this patient with a history of brain tumor and craniotomy. Several millimeters of leftward midline shift. I don't have any pertinent priors by the craniotomy appears to have been done quite some time ago. MRI of the brain with and without contrast is recommended. Marvin Tristan MD Assessment and Plan Assessment and Plan (1) Brain tumor Diagnosis: Principal (2) History of glioma Diagnosis: Principal (3) History of astrocytoma Diagnosis: Principal (4) Tobacco abuse Diagnosis: Principal (5) Seizure disorder Diagnosis: Principal (6) Leukocytosis Diagnosis: Principal Caprini VTE Risk Assessment Caprini VTE Risk Assessment Caprini VTE Risk Assessment: Mod/High Risk (score >= 2) Caprini Risk Assessment Model Point Value = 1 Point Value = 2 Point Value = 3 Point Value = 5 Age 41-60 Minor surgery BMI > 25 kg/m2 Swollen legs Varicose veins or History of unexplained or recurrent spontaneous Oral contraceptives or hormone replacement Sepsis (< 1 month) Serious lung disease, including pneumonia (< 1 month) Abnormal pulmonary function Acute myocardial infarction Congestive heart failure (< 1 month) History of inflammatory bowel disease Medical patient at bed rest Age 61-74 Arthroscopic surgery Major open surgery (> 45 min) Laparoscopic surgery (> 45 min) Malignancy Confined to bed (> 72 hours) Immobilizing plaster cast Central venous access Age >= 75 History of VTE Family history of VTE Factor V Leiden Prothrombin [id number] Lupus anticoagulant Anticardiolipin antibodies Elevated serum homocysteine Heparin-induced thrombocytopenia Other congenital or acquired thrombophilia Stroke (< 1 month) Elective arthroplasty Hip, pelvis, or leg fracture Acute spinal cord injury (< 1 month) Prophylaxis Regimen Total Risk Factor Score Risk Level Prophylaxis Regimen 0-1 Low Early ambulation 2 Moderate Order ONE of the following: *Sequential Compression Device (SCD) *Heparin 5000 units SQ BID 3-4 Higher Order ONE of the following medications: *Heparin 5000 units SQ TID *Enoxaparin/Lovenox 40 mg SQ daily (WT < 150 kg, CrCl > 30 mL/min) *Enoxaparin/Lovenox 30 mg SQ daily (WT < 150 kg, CrCl > 10-29 mL/min) *Enoxaparin/Lovenox 30 mg SQ BID (WT < 150 kg, CrCl > 30 mL/min) AND/OR *Sequential Compression Device (SCD) 5 or more Highest Order ONE of the following medications: *Heparin 5000 units SQ TID (Preferred with Epidurals) *Enoxaparin/Lovenox 40 mg SQ daily (WT < 150 kg, CrCl > 30 mL/min) *Enoxaparin/Lovenox 30 mg SQ daily (WT < 150 kg, CrCl > 10-29 mL/min) *Enoxaparin/Lovenox 30 mg SQ BID (WT < 150 kg, CrCl > 30 mL/min) AND *Sequential Compression Device (SCD) Attending Statement Neuro. Continue neuro checks in a serial fashion. A follow-up CT of the head will be obtained. I suspect recurrent neoplasm. Consult oncology and rad Onc. The alternatives of treatment have been discussed with him, including the possibility of further surgery. Patient states he likely will refuse any intervention due to previous recommendations from previous neurosurgeons. Seizures. Patient is currently on lamotrigine 50 mg by mouth twice a day at home. Increased to 100 milligrams twice a day. Loaded with fosphenytoin 1 g. Currently 100 mg IV 3 times a day. EEG. Consult neurology. Seizure precautions. Phenytoin level in AM. Tobacco abuse. Nicotine patch 21 mg daily. Nasal cannula to maintain saturations greater than equal to 92% incentive spirometry while awake GI. Docusate sodium/senna for bowel regimen Endocrine: Sliding-scale insulin if indicated to maintain euglycemia. Patient is on Decadron Renal: Creatinine currently within normal limits Monitor urine output Accurate I's and O's Leukocytosis. Follow CBC daily. Monitor trends. ID: Monitor for infection Replace electrolytes as clinically indicated Physical therapy evaluate and treat Pantoprazole for GI prophylaxis DVT - NATALEE farnsworth and SCDs for DVT prophylaxis Endy Jang MD Feb 27, 2017 14:31
[2017-02-27] MEDS: PHENYTOIN SODIUM 100 MG CAP PO SCH ×2 (17:52→21:03)
--- NOTE | 2017-02-27 18:58 | MB ---
cc: MAYURI PARKS DATE OF CONSULTATION 02/27/2017 REASON FOR CONSULTATION Seizures HISTORY OF PRESENT ILLNESS This is a pleasant 26-year-old male who has a history of previous grade 2 ganglioglioma resected in 2004 with recurrent astrocytoma of the right frontal lobe with re-excision with recurrent tumor in September 2015 in the right frontal lobe and basal ganglia area. He has a history of secondary seizures which he states began with him first having a feeling of " ", then he developed jerking activity in the left arm and then they become grand mal seizures he states. However with some of them, he maintains consciousness. He was initially on Keppra as well as Topamax and Depakote, but continued to have breakthrough seizures on these medications. More recently, he was placed on Lamictal 50 mg b.i.d. which he states reduced the frequency as well duration of seizures, but he still has intermittent seizures was admitted to the hospital with recurrent seizure activity. Since in the hospital, his Lamictal dose has been increased to 100 mg b.i.d., he tolerates it and has had no recurrent seizures. PERSONAL HISTORY As noted above. MEDICATIONS Current medications are: 1. Protonix 40 mg daily 2. Artificial tears 3. He was started on Cerebyx 100 mg IV q.8 h. 4. Decadron 4 mg IV q6h 5. Lamictal 100 mg p.o. b.i.d. NEUROLOGIC EXAMINATION VITAL SIGNS: Blood pressure 136/80, pulse 94, respiratory rate is 23, temperature 97.9 degrees. Higher cortical functions, he is alert and oriented. Speech is normal. Cranial nerves intact. Motor exam shows 5/5 strength of all groups in the upper and lower extremities. There is no drift. Motor normal. Reflexes symmetric. MRI of the brain shows an infiltrating bifrontal tumor involving the corpus callosum and basal ganglia with faint enhancement consistent with recurrent glioma, previous right craniotomy identified. LABORATORY DATA White count 13,800, hemoglobin 15.5, hematocrit 45.6%, platelet count 294,000, PT 10.8, INR 1, APTT 27.6. Sodium is 138, potassium 4.3, chloride 107, CO2 is 21.7. The BUN is 7, creatinine 0.87, GFR is 104, glucose 110, AST 8, ALT 18, PT 10.8, INR 1, APTT 27.6. Tox screen is negative. Phenytoin level is 12.0. IMPRESSION Recurrent seizures secondary to glioma. RECOMMENDATIONS Continue the higher Lamictal dose, as well as Dilantin and will change to p.o. Dilantin 100 mg t.i.d. MD YAMILEX Gusman/MARTIN /4:20 PM /6:45 PM
--- NOTE | 2017-02-27 19:47 | MG ---
cc: MAYURI PARKS Lab No: [id number] Date: 02/27/2017 Age: 26 Sex: M Race: __ TECHNIQUE 17 channel EEG. DESCRIPTION The background rhythm shows a symmetrical alpha rhythm. Frequency is 8-10 Hz, amplitude is 20-30 microvolts. During drowsiness, there is slowing in the theta range. Occasional sharp activity is seen in a generalized fashion. There are no lateralizing features. The patient does appear to fall asleep during the tracing and sleep spindles are identified. There is some eye movement artifact. Photic results in a normal driving response. INTERPRETATION Abnormal study with bilateral sharp activity identified consistent with a generalized seizure disorder. MD YAMILEX Gusman/MARTIN /7:07 PM /7:39 PM
--- NOTE | 2017-02-27 21:35 | EKG ---
Date Performed: 02/26/2017 Time Performed: 19:57:00 PTAGE: 26 years EKG: Sinus rhythm NORMAL ECG NO PREVIOUS TRACING DOCTOR: Bonny Andujar Interpretating Date/Time 02/27/2017 21:34:58
[2017-02-28] MEDS: ACETAMINOPHEN/HYDROcodone 325 MG/5 MG TAB PO PRN ×5 (00:25→19:07)
[2017-02-28] MEDS: DEXAMETHASONE SOD PHOS 4 MG/ML VIAL IV PUSH SCH ×4 (00:26→17:03)
[2017-02-28] MEDS: SODIUM CHLORIDE 0.9% FLUSH 10 ML FLUSH IV FLUSH PRN ×2 (00:29→05:44)
[2017-02-28 01:04] VITALS: BP 131/73; PULSE 66; RESP 16; TEMP 97.6; O2SAT 97
[2017-02-28] MEDS: CHLORHEXIDINE GLUCONATE 2 % 1 PACK (2 CLOTHS) TOP SCH (04:00)
[2017-02-28] MEDS: SODIUM CHLOR 0.9% 1000 ML INJ 1,000 ML IV SCH (04:13)
[2017-02-28] MEDS: PHENYTOIN SODIUM 100 MG CAP PO SCH ×2 (05:43→14:05)
--- NOTE | 2017-02-28 06:59 | MB ---
cc: GIOVANNI CRUZ M.D. DATE OF CONSULTATION 02/27/2017 REASON FOR CONSULTATION Consult requested by counter top maker for evaluation of brain tumor. HISTORY OF PRESENT ILLNESS Balaji is a 26-year-old male who moved to this area from [place] about a year ago. He was recently referred to me for evaluation of a brain tumor. The patient was diagnosed with brain tumor at the age of 14 in November of 2004. He underwent resection of the tumor in the right frontal lobe of the brain at [facility]. 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 He did not require any radiation or chemotherapy. The patient had developed seizures in November of 2011. In July of 2012, the MRI of the head showed recurrent tumor in the right frontal parietal lobe of 6.3 cm in size. This was resected in [place] on January 13, 2013. 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 He did not have any radiation or chemotherapy. In September of 2015, the patient was found to have recurrent tumor in the basal ganglia and the right frontal lobe. He was evaluated by a neurosurgeon who did not recommend surgery. He was referred to medical oncologist and radiation oncologist and he was offered combined concurrent radiation and chemotherapy. However, the patient had declined. The patient moved to [place] to live with his mom last year. The patient has been having breakthrough seizures and he saw a neurologist, Dr. Manriquez in [place]. An MRI of the brain was ordered without contrast which showed vasogenic edema and suspicious for underlying neoplasm. The patient was referred to me and I saw him on February 13. I had ordered a STAT MRI of the brain with and without contrast which was scheduled in two days on February 15. However, the patient was a no-show for the MRI, he stated that he did not have any transportation. MRI has now been rescheduled for March 01 which is day after tomorrow. The patient had a follow-up appointment with me today in our [place] office. The patient had another seizure yesterday and he was brought into the emergency room at [facility] last night. The patient is now transferred to [facility] and has been admitted by the counter top maker. Neurosurgeon, Dr. Jang has been consulted. I have been asked to see the patient for further evaluation as well. The patient has been on Lamitrigone and the dose was increased. The Dilantin was also given for the seizure. Neurology has been consulted. The patient did not have any further seizures. He continues to have headaches. The rest of the review of systems is negative. PAST MEDICAL HISTORY 1. Anxiety disorder 2. Seizure disorder 3. Brain tumor in 2004, it was ganglioglioma and in 2013, it was astrocytoma. PAST SURGICAL HISTORY Brain surgery in 2004 and 2013. ALLERGIES MORPHINE MEDICATIONS Lamotrigine FAMILY HISTORY The patient lives with his parents, both are alive. The patient has one brother, one sister and one son. He does not have any daughters. SOCIAL HISTORY The patient is single. He smokes cigarettes, a half-pack a day for at least 17 years. He occasionally drinks alcohol. He is disabled. PHYSICAL EXAM This is a well-developed, well-nourished white male in no apparent distress. VITAL SIGNS: Temperature 98.1, heart rate is 88, blood pressure 133/89, O2 saturation 93% on room air. HEENT: PERRLA, EOMI, anicteric. No oral lesions noted. NECK: No lymphadenopathy noted. LUNGS: Clear. No wheezing, rhonchi or rales. HEART: Regular rate and rhythm. ABDOMEN: Soft and nontender. No hepatosplenomegaly. EXTREMITIES: No pedal edema. NEUROLOGIC: Awake, alert, and oriented times threes. SKIN: No significant lesions noted. ASSESSMENT 1. History of ganglioglioma grade 2 in 2004. s/p Resection. 2. 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 3. Recurrent brain tumor last year and now he has clear evidence of progressive disease. 4. Seizure disorder secondary to brain tumor. 5. Anxiety disorder. PLAN I have reviewed his available records and I had an extensive discussion with the patient regarding the MRI of the brain with and without contrast. It shows infiltrating bifrontal corpus callosal and basal ganglia lesion. This is consistent with recurrent brain tumor. The patient has been evaluated by neurosurgeon, Dr. Jang, however, the patient had declined surgery as well as biopsy. He stated that his previous neurosurgeon has advised him against surgery. I discussed with him regarding treatment with radiation and chemotherapy. The patient states that his neurologist in [place] advised him not to have radiation as that will kill him immediately due to the location of the tumor. He does not want to do chemotherapy due to the side effects. He stated that the radiation and chemotherapy will harm him more than the brain tumor. This was discussed in the presence of the patient's nurse who witnessed our conversation. The patient's nurse also tried to convince him to have treatment, however, the patient is refusing for any radiation and chemotherapy. In his mind, he thinks that the radiation will kill him immediately. I advised him that I will consult a radiation oncologist so that he can discuss with him and get a second opinion. I also discussed with him regarding Hospice which he adamantly refused. If the patient is declining for surgery, radiation, and chemotherapy, then unfortunately there is nothing that I can do to help his situation. I told him that his seizures are due to brain tumor. He will continue to have seizures in spite of taking the medications. Neurologist have been consulted for his seizures. Once the patient is being seen by radiation oncologist, then in my opinion the patient could be discharged as he is declining treatment for his brain tumor. Thank you for asking my opinion. MD KATHRIN Goldstein/MARTIN /11:47 PM /6:35 AM MTDD
[2017-02-28 08:10] VITALS: BP 99/58; PULSE 97; RESP 18; TEMP 98.1; O2SAT 96
[2017-02-28] MEDS: INSULIN NovoLIN REGULAR SUPPLEMENTAL SCALE SQ SCH ×3 (08:22→17:03)
[2017-02-28] MEDS: lamoTRIgine 100 MG TAB PO SCH (08:24)
[2017-02-28] MEDS: DOCUSATE SODIUM 50 MG/SENNA 8.6 MG TAB PO SCH (08:25)
[2017-02-28] MEDS: PANTOPRAZOLE SOD 40 MG DELAYED RELEASE TAB PO SCH (08:25)
[2017-02-28] MEDS: ARTIFICIAL TEARS OPTH SOLN 15 ML BTL EACH EYE SCH ×3 (08:30→17:03)
[2017-02-28] MEDS: SODIUM CHLORIDE 0.9% FLUSH 10 ML FLUSH IV FLUSH SCH (08:30)
[2017-02-28 09:30] VITALS: O2SAT 92
[2017-02-28 11:55] VITALS: BP 121/68; PULSE 98; RESP 18; TEMP 98.2; O2SAT 97
--- NOTE | 2017-02-28 14:45 | PD.ONC.PN ---
Subjective Subjective Remarks No more seizures Persistent generalized headache Awaiting to see radiation oncology Anxious to leave to smoke. Objective Data Date Time Temp Pulse Resp B/P (MAP) Pulse Ox O2 Delivery O2 Flow Rate FiO2 02/28/17 11:55 98.2 98 18 121/68 (85) 97 02/28/17 09:30 92 21 02/28/17 08:41 Room Air 02/28/17 08:10 98.1 97 18 99/58 (72) 96 02/28/17 01:04 97.6 66 16 131/73 (92) 97 02/27/17 22:20 98.1 78 18 118/72 (87) 98 02/27/17 20:00 98.1 87 20 134/75 (94) 97 02/27/17 19:00 97 Room Air 02/27/17 16:00 98.1 88 18 133/89 (104) 93 Result Diagram: 02/27/17 1007 02/27/17 1007 Administered Medications Medications (Trade) Dose Ordered Sig/Janelle Route PRN Reason Start Time Stop Time Status Last Admin Dose Admin Dexamethasone Sodium Phosphate (Decadron Inj) 4 mg Q6HR IV PUSH 02/27/17 00:00 02/28/17 14:05 Sodium Chloride 1,000 ml @ 84 mls/hr [id number] IV 02/26/17 19:48 02/28/17 04:13 Sodium Chloride (NS Flush) 2 ml UNSCH PRN IV FLUSH FLUSH AFTER USING IV ACCESS 02/26/17 20:00 02/28/17 05:44 Sodium Chloride (NS Flush) 2 ml BID IV FLUSH 02/26/17 21:00 02/27/17 21:03 Acetaminophen/ Hydrocodone Bitart ([place] 5-325 Mg) 1 tab Q4H PRN PO PAIN SCALE 1 TO 5 02/26/17 20:00 02/28/17 14:06 Pantoprazole Sodium (Protonix) 40 mg DAILY PO 02/27/17 09:00 02/28/17 08:25 Senna/Docusate Sodium (Jacquelin-Colace) 1 tab BID PO 02/26/17 21:00 02/28/17 08:25 Lamotrigine (LaMICtal) 100 mg Q12HR PO 02/26/17 21:00 02/28/17 08:24 Insulin Human Regular (NovoLIN R SUPPLEMENTAL SCALE) 1 ACHS SLIDING SCALE SQ 02/27/17 08:00 02/27/17 17:00 Phenytoin (Dilantin) 100 mg Q8HR PO 02/27/17 17:15 02/28/17 14:05 Objective Remarks GENERAL: Younger male sitting up in bed eating lunch in no acute distress. SKIN: Warm and dry. HEAD: Normocephalic. EYES: No injection or drainage. NECK: Supple, trachea midline. CARDIOVASCULAR: Regular rate and rhythm without murmurs. RESPIRATORY: Clear posteriorly. Breathing unlabored. GASTROINTESTINAL: Abdomen soft, non-tender, nondistended. EXTREMITIES: No cyanosis, or edema. MUSCULOSKELETAL: Adequate muscle tone. NEUROLOGICAL: No obvious focal deficit. Awake, alert, and oriented x3. Assessment/Plan Problem List: (1) Brain tumor ICD Codes: D49.6 - Neoplasm of unspecified behavior of brain Status: Acute Plan: 02/28: Await radiation oncology consult. If he is continuing to refuse treatment he can be discharged from our standpoint. Continue to monitor for seizures. -- MRI of the brain shows infiltrating bifrontal corpus callosal and basal ganglia lesion consistent with recurrent brain tumor -- No further seizures -- Neurosurgery following -- Radiation oncology consulted -- The patient is currently refusing all treatment Hx/Workup: The patient was originally diagnosed at the age of 14. He underwent resection of the tumor in the right frontal lobe. That pathology showed ganglioglioma grade 2. He did not require any radiation or chemotherapy. In July 2012 MRI of the head showed recurrent tumor in the right frontal parietal lobe of 6.3 cm in size. This was resected in [place]. Pathology showed that the tumor had progressed into a grade 3 astrocytoma. The patient did not have any radiation or chemotherapy. In September of 2015 patient was found to have recurrent basal ganglia and right frontal lobe. No surgery was recommended at that time. He was referred to medical and radiation oncology where concurrent radiation and chemotherapy was recommended however the patient declined. He has recently moved to [place] with mother and has been having seizures. The patient was seen at our clinic outpatient on February 13 and a stat MRI of the brain was ordered. However the patient states that he did not have any transportation so he did not show up for that appointment. Assessment 26 -year-old male with history of brain tumor admitted for seizure Attending Statement no new c/o d/w dr crawford regarding xrt pt declines treatment. The exam, history, and the medical decision-making described in the above note were completed with the assistance of the mid-level provider. I reviewed and agree with the findings presented. I attest that I had a [id number] encounter with the patient on the same day, and personally performed and documented my assessment and findings in the medical record. Kayla Lundy Feb 28, 2017 14:45 Caleb Fagan MD Mar 01, 2017 07:21
--- NOTE | 2017-02-28 15:56 | HHI.NSPN ---
(Juju Medellin) Note Status Status: Progress Note (Juju Medellin) Interval History Interval History This is a 26-year-old malewith history or a prior ganglioglioma grade 2 and hospitalization with resection November 2004, He developed a recurrent astrocytoma/right frontal lobe with Re-excision. Features with evolution towards a grade 3 neoplasm. He had a negative MRI of the brain March 2015. Recurrent tumor in September 2015 in the basal ganglia and the right frontal lobe. He was referred to oncology and radiation oncology. Theiy recommended chemotherapy. Mr Castellanos states his neurosurgeon recommended no further surgical intervention. He has been taking antiepileptic medications. Switched from Topamax and Depakote to Lamictal 50 mg twice a day He presented to the [place] ED with seizures. CT brain revealed bilateral frontal masses. MRI of the brain revealed about 8.5 vital 1.1 x 7 bilateral frontal lobe mass with extension to the corpus callosum in the right greater than left basal ganglia. There is 7 mm left shift. Neurosurgery consultation was requested. 02/28: no new complaints, continues to requests nonsurgical intervention (Juju Medellin) Labs, Micro, & Vital Signs Results Date Time Temp Pulse Resp B/P (MAP) Pulse Ox O2 Delivery O2 Flow Rate FiO2 02/28/17 11:55 98.2 98 18 121/68 (85) 97 02/28/17 09:30 92 21 02/28/17 08:41 Room Air 02/28/17 08:10 98.1 97 18 99/58 (72) 96 02/28/17 01:04 97.6 66 16 131/73 (92) 97 02/27/17 22:20 98.1 78 18 118/72 (87) 98 02/27/17 20:00 98.1 87 20 134/75 (94) 97 02/27/17 19:00 97 Room Air 02/27/17 16:00 98.1 88 18 133/89 (104) 93 03/01/17 07:00 Intake Total 480 ml Balance 480 ml Constitutional Vital Signs Date Time Temp Pulse Resp B/P (MAP) Pulse Ox O2 Delivery O2 Flow Rate FiO2 02/28/17 11:55 98.2 98 18 121/68 (85) 97 02/28/17 09:30 92 21 02/28/17 08:41 Room Air 02/28/17 08:10 98.1 97 18 99/58 (72) 96 02/28/17 01:04 97.6 66 16 131/73 (92) 97 02/27/17 22:20 98.1 78 18 118/72 (87) 98 02/27/17 20:00 98.1 87 20 134/75 (94) 97 02/27/17 19:00 97 Room Air 02/27/17 16:00 98.1 88 18 133/89 (104) 93 03/01/17 07:00 Intake Total 480 ml Balance 480 ml (Juju Medellin) Review of Systems Constitutional: DENIES: Fever, Chills Gastrointestinal: DENIES: Nausea, Vomiting Neurologic: DENIES: Localized weakness (Juju Medellin) Physical Exam Mr. Brown is alert, awake and oriented to time, place and person. Speech is fluent. Higher cognitive functions are normal. Cranial nerve examination demonstrates the pupils to be equal, round, and reactive to light. Extra-ocular movements are intact. Facial motor and sensory function are normal and symmetrical. Neck is soft and supple. Muscle testing reveals normal bulk and tone. Muscle strength is 5/5 in all muscle groups of both upper extremities including deltoid, biceps, triceps, brachioradialis, wrist extension and real estate coordinator. In the lower extremities, strength is 5/5 in both iliopsoas, quadriceps, hamstrings, plantar flexion, dorsiflexion , and extensor hallicus longus. Sensory examination is intact to light touch in both the upper and lower extremities, symmetrically. Deep tendon reflexes are 2+ and symmetrical in the biceps, triceps, and brachioradialis, bilaterally, in the upper extremities. In the lower extremities , the patellar and Achilles are 2+, bilaterally. There is a bilateral plantar flexion response. Hoffmanns sign is negative. There is no clonus or other abnormal reflexes noted. Cerebellar examination is intact to [id number] test (Juju Medellin) Medications Current Medications Current Medications Medications (Trade) Dose Ordered Sig/Janelle Route PRN Reason Start Time Stop Time Status Last Admin Dose Admin Dexamethasone Sodium Phosphate (Decadron Inj) 4 mg Q6HR IV PUSH 02/27/17 00:00 02/28/17 14:05 Sodium Chloride 1,000 ml @ 84 mls/hr [id number] IV 02/26/17 19:48 02/28/17 04:13 Sodium Chloride (NS Flush) 2 ml UNSCH PRN IV FLUSH FLUSH AFTER USING IV ACCESS 02/26/17 20:00 02/28/17 05:44 Sodium Chloride (NS Flush) 2 ml BID IV FLUSH 02/26/17 21:00 02/27/17 21:03 Acetaminophen (Tylenol) 650 mg Q6H PRN PO FOR FEVER >101F 02/26/17 20:00 Acetaminophen/ Hydrocodone Bitart ([place] 5-325 Mg) 1 tab Q4H PRN PO PAIN SCALE 1 TO 5 02/26/17 20:00 02/28/17 14:06 Pantoprazole Sodium (Protonix) 40 mg DAILY PO 02/27/17 09:00 02/28/17 08:25 Midazolam HCl (Versed Inj) 2 mg Q1H PRN IV PUSH seizure 02/26/17 20:00 Artificial Tears (Tears Naturale Opth Soln) 1 drop TID EACH EYE 02/27/17 09:00 Ondansetron HCl (Zofran Inj) 4 mg Q6H PRN IV PUSH NAUSEA OR VOMITING 02/26/17 20:00 Albuterol Sulfate (Albuterol Neb) 2.5 mg Q2HR NEB PRN INH SOB/WHEEZING 02/26/17 20:00 Miscellaneous Information 1 Q361D XX 02/26/17 20:00 Chlorhexidine Gluconate (Chlorhexidine 2% Cloth) 3 pack Taper DAILY@04 TOP 02/27/17 04:00 02/23/18 03:59 Chlorhexidine Gluconate (Chlorhexidine 2% Cloth) 3 pack UNSCH PRN TOP HYGIENIC CARE 02/26/17 20:00 Senna/Docusate Sodium (Jacquelin-Colace) 1 tab BID PO 02/26/17 21:00 02/28/17 08:25 Magnesium Hydroxide (Milk Of Magnesia Liq) 30 ml Q12H PRN PO MILD - MODERATE CONSTIPATION 02/26/17 20:00 Sennosides (Senokot) 17.2 mg Q12H PRN PO MODERATE - SEVERE CONSTIPATION 02/26/17 20:00 Bisacodyl (Dulcolax Supp) 10 mg DAILY PRN RECTAL SEVERE CONSITIPATION 02/26/17 20:00 Lactulose (Lactulose Liq) 30 ml DAILY PRN PO SEVERE CONSITIPATION 02/26/17 20:00 Lamotrigine (LaMICtal) 100 mg Q12HR PO 02/26/17 21:00 02/28/17 08:24 Dextrose (D50w (Vial) Inj) 50 ml UNSCH PRN IV HYPOGLYCEMIA-SEE COMMENTS 02/27/17 02:30 Glucagon (Glucagon Inj) 1 mg UNSCH PRN OTHER HYPOGLYCEMIA-SEE COMMENTS 02/27/17 02:30 Insulin Human Regular (NovoLIN R SUPPLEMENTAL SCALE) 1 ACHS SLIDING SCALE SQ 02/27/17 08:00 02/27/17 17:00 Phenytoin (Dilantin) 100 mg Q8HR PO 02/27/17 17:15 02/28/17 14:05 (Juju Medellin) Medical Decision Making MDM Remarks 26 y/o male with recurrent neoplasm seizures (Juju Medellin) Plan Plan Remarks pt still refusing surgical intervention, cont AEDs, mgt per Neurology for seizures, cont w/u and treatment per oncology and rad-oncology, ok to dc home from [facility] standpoint (Juju Medellin) Attending Statement The exam, history, and the medical decision-making described in the above note were completed with the assistance of the mid-level provider. I reviewed and agree with the findings presented. I attest that I had a [id number] encounter with the patient on the same day, and personally performed and documented my assessment and findings in the medical record. (Endy Jang MD) Juju Medellin Feb 28, 2017 15:56 Endy Jang MD Mar 04, 2017 10:50
[2017-02-28 16:08] VITALS: BP 123/72; PULSE 81; RESP 18; TEMP 98.3; O2SAT 97
[2017-02-28] MEDS ORDERED: DILA100C PO (19:46)
[2017-02-28] MEDS ORDERED: LAMO100 PO (19:46)
[2017-02-28] MEDS ORDERED: DEXA4TAB PO (19:51)
--- NOTE | 2017-02-28 19:53 | HHI.DCPOC ---
Discharge Care Plan Additional Problems seizures, brain tumor Goals to Promote Your Health * To prevent worsening of your condition and complications * To maintain your health at the optimal level DO NOT OPERATE ANY HEAVY MACHINERY OR OPERATE ANY VEHICLES. Directions to Meet Your Goals Take your medications as prescribed Follow your dietary instruction Follow activity as directed Keep your appointments as scheduled Take your immunizations and boosters as scheduled If your symptoms worsen call your PCP, if no PCP go to Urgent Care Center or Emergency Room Smoking is Dangerous to Your Health. Avoid second hand smoke Call the 24-hour hour crisis hotline for domestic abuse at Ryan Whelan MD Feb 28, 2017 19:53
[2017-02-28] MEDS ORDERED: NORC5TAB PO (19:56)
--- NOTE | 2017-02-28 20:10 | HHI.DS ---
Discharge Summary Admission Date Feb 26, 2017 at 20:15 Discharge Date: Feb 28, 2017 Admitting Diagnosis Brain Tumor/Seizures (1) Brain tumor ICD Code: D49.6 - Neoplasm of unspecified behavior of brain Diagnosis: Principal Status: Acute (2) History of glioma ICD Code: Z87.898 - Personal history of other specified conditions Diagnosis: Principal (3) History of astrocytoma ICD Code: Z85.841 - Personal history of malignant neoplasm of brain Diagnosis: Principal (4) Tobacco abuse ICD Code: Z72.0 - Tobacco use Diagnosis: Principal (5) Seizure disorder ICD Code: G40.909 - Epilepsy, unspecified, not intractable, without status epilepticus Diagnosis: Principal Status: Acute (6) Leukocytosis ICD Code: D72.829 - Elevated white blood cell count, unspecified Diagnosis: Principal Procedures EEG which showed generalized seizure disorder Brief History - From Admission This is a 26-year-old male. Date of admission 02/27/2017. 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 Features with evolution towards world health organization grade 3 neoplasm. Patient had negative MRI of the brain March 2015. Recurrent sleep tumor in September 2015 in the basal ganglia and the right frontal lobe. Patient was referred oncology and radiation oncology. Their recommendation chemotherapy. Patient states his neurosurgeon recommended no further surgical intervention. Patient also has has his antiepileptic medications. Switch from Topamax and Depakote to Lamictal 50 mg twice a day currently. Today, patient presented to the [place] ED with seizures. CT brain revealed bilateral frontal masses record left. MRI of the brain revealed about 8.5 vital 1.1 x 7 bilateral frontal lobe mass with extension to the corpus callosum in the right greater than left basal ganglia. There is a 7 mm left shift. Neurosurgery was consulted. Recommended Decadron 4 mg IV every 6 hours which is currently on. 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 They will evaluate the patient today. CBC/BMP: 02/27/17 1007 02/27/17 1007 Significant Findings Laboratory Tests Test 02/26/17 18:29 02/26/17 22:10 02/26/17 23:55 02/27/17 10:07 White Blood Count 13.5 TH/MM3 (4.0-11.0) 13.8 TH/MM3 (4.0-11.0) Neutrophils (%) (Auto) 70.2 % (16.0-70.0) 84.3 % (16.0-70.0) Eosinophils (%) (Auto) 5.4 % (0.0-4.0) Neutrophils # (Auto) 9.4 TH/MM3 (1.8-7.7) 11.6 TH/MM3 (1.8-7.7) Monocytes # (Auto) 1.0 TH/MM3 (0-0.9) Eosinophils # (Auto) 0.7 TH/MM3 (0-0.4) Blood Urea Nitrogen 6 MG/DL (7-18) Aspartate Amino Transf (AST/SGOT) 9 U/L (15-37) 8 U/L (15-37) Estimat Glomerular Filtration Rate 72 ML/MIN (>89) Valproic Acid (Depakene) Level 4 MCG/ML (50-100) Random Glucose 110 MG/DL (74-106) PE at Discharge No acute distress Ambulating well without difficulty No slurred speech and no facial droop Hospital Course Patient was started on increased dosing of antiepileptic medications, neurology was consulted as well as neurosurgery and oncology. The patient refused recommendations for surgical intervention as well as chemotherapy. His seizures had stabilized and remained seizure-free for the remainder of the hospitalization on increased dosing of Lamictal and Dilantin. However the underlying issue of the patient's brain tumor was still going to pose a problem and the patient was counseled extensively that if he did not proceed with further intervention to address that issue his seizures were likely to recur. States that he had a discussion with Dr. Salazar and would make his final decision for radiation therapy after discharge after discussion with family. He was discharged on a steroid taper as well as increased doses of his antiepileptic medications. Patient has met maximum benefit from hospitalization and is clinically stable for discharge. He was counseled extensively to avoid operating any heavy machinery and or driving. Pt Condition on Discharge: Stable Discharge Disposition: Discharge Home Discharge Time: > 30 minutes Discharge Instructions DIET: Follow Instructions for: Heart Healthy Diet Activities you can perform: Weight Bearing as Gema, See Additionl Instruction Other Activity Instructions: do not operate any heavy machinery, cannot drive any vehicles Follow up Referrals: Neurosurgery Oncology - 2 Weeks with Riley Ray MD PCP Follow-up - 1 Week New Medications: Dexamethasone (Dexamethasone) 4 Mg Tab 4 MG PO DIRECTED for seizures, #14 TAB 0 Refills 1 tab q8hrs for 2 days, then 1 tab q12 hrs for 2 days, then 0.5 tab q12 hrs for 2 days Hydrocodone-Acetaminophen ([place]) 5-325 mg Tab 1 TAB PO Q6H PRN for PAIN, #48 TAB 0 Refills Lamotrigine (Lamictal) 100 Mg Tab 100 MG PO Q12HR for seizures, #60 TAB Phenytoin Extended (Dilantin) 100 Mg Cap 100 MG PO Q8HR for seizures, #90 CAP Continued Medications: [seizure med] () Ryan Whelan MD Feb 28, 2017 20:10
[2017-02-28 20:35] VITALS: BP 126/78; PULSE 88; RESP 16; TEMP 98.5; O2SAT 96
--- NOTE | 2017-03-04 10:00 | RC ---
cc: HELENA RAY MD DATE OF SERVICE: 02/28/2017. REFERRING PHYSICIAN Dr. Fagan. DIAGNOSIS: Progressive of brain tumor. CHIEF COMPLAINT: Seizure. REASON FOR VISIT: The patient is being evaluated for definite curative radiotherapy treatment options. 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 The patient was surgically resected and did not require any radiation or chemotherapy. 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 It appears after the last resection, the patient was offered radiation and chemotherapy but he did not receive this. Again, in September of 2015, the patient was found to have a recurrent tumor and was offered salvage concomitant chemotherapy as the patient was not a surgical candidate which he declined. The patient says that he was told by his neurologist that if he had radiation that he would from the treatments. It appears that the patient recently started having progressive seizures reason for which he was brought to the emergency room and evaluated and admitted for seizure control. The patient has been evaluated by Dr. Jang, who has not recommended any surgical resection. Dr. Fagan has requested for me to see the patient in consultation for evaluation regarding radiation therapy options. Per discussion with Dr. Fagan today, the patient is declining any treatments including chemotherapy. PAST MEDICAL HISTORY: As above. 1. Anxiety disorder. 2. Seizure disorder. MEDICATIONS Include: 3. Dilantin. 4. Protonix. 5. Insulin human. 6. Decadron. 7. Jacquelin-Colace. 8. Lamictal. 9. Tylenol. 10. [place]. 11. Versed. 12. Zofran. 13. Albuterol. ALLERGIES MORPHINE. FAMILY HISTORY Unremarkable for any carcinoma. SOCIAL HISTORY The patient smokes a pack of cigarettes per day and has been doing that for the last 17 years. Alcohol intake socially. REVIEW OF SYSTEMS CONSTITUTIONAL: The patient denies any decrease or loss of major weight or appetite. ALLERGIES: Has not had an allergic reaction recently. EYES: Unremarkable. ENT: Unremarkable. NECK: Unremarkable. INTEGUMENT: Unremarkable. CARDIOVASCULAR: Denies any chest pain. No clinical signs of AR. RESPIRATORY: Unremarkable. GASTROINTESTINAL: Unremarkable. GENITOURINARY: Unremarkable. MUSCULOSKELETAL: Unremarkable. NEUROLOGIC: Seizures. PSYCHIATRIC: Anxiety. ENDOCRINE: Diabetes. HEMATOLOGIC: Unremarkable. DERMATOLOGIC: Unremarkable. PHYSICAL EXAMINATION GENERAL: The patient alert times three, no acute distress at the time of evaluation. VITAL SIGNS: Temperature 98.3, pulse 81, respiratory rate 18, blood pressure 123/72, pulse ox 97% on room air. LUNGS: To auscultation bilateral lungs were clear to auscultation with appropriate ventilatory and respiratory effort. HEART: The heart was regular rate and rhythm. No murmurs. NECK: Palpation of the neck and bilateral supraclaviculars are free. EXTREMITIES: Lower extremities without edema. NEUROLOGIC: No neurological deficit detected. Cognitive functions appear to be preserved. Motor functions are preserved. No other positive findings. Surgical pathology per reports. IMAGING Radiology, CT of the brain 02/26/2017. Impression. Large area of vasogenic pattern edema of both frontal lobes as discussed above concerning for underlying mass, presumably a recurrence in this patient with a history of brain tumor and craniotomy. Several millimeters of the leftward midline shift. MRI of the brain with and without contrast is recommended. MRI of the brain 02/26/2017. Impression, infiltrating bifrontal corpus callosum and basal ganglia lesion with only a small faintly enhancing focus. The features would suggest a large glioma presumably recurrent. The patient has had a previous right craniotomy. Lymphoma could appear similar. Associated 7 mm of leftward midline shift. ASSESSMENT A 26-year-old white male with a diagnosis of brain tumor, unknown type at the present time. The patient being evaluated for possible radiotherapy treatment options. PLAN I had an extensive discussion with the patient in regards to his present disease and condition. I have reviewed the MRI of the brain. I have discussed this case personally with Dr. Fagan today. I advised the patient that the main recommendation will be to perform a biopsy of the mass to determine what type of tumor it is. Whether this mass could be surgically resected or not will be left to Dr. Jang discretion. The patient at the present time is declining any sort of surgical intervention or biopsy, stating that his doctors up in [place] had told him that it was not possible to resect and recommended against it. I advised the patient that without treatment this mass was large enough and was involving both lobes at the present time, that he potentially could succumb to disease fairly quickly. 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 In this case with unresectable tumor the patient survival could be limited as well. In any event I recommend the patient consider aggressive treatment that being concomitant chemoradiation therapy in order to prolong his life and in order to maintain quality of life. The patient stated that he was not sure whether he wanted to have treatments. He wanted to discuss further with his mother. I have given the patient two of my cards and asked him to give me a call should he had any further questions or concerns. I have discussed this case with the clinical social worker to contact the patient next week if we have not heard from him in order to determine how the patient will proceed. The patient clearly understands that without treatment his survival will be very limited and he will succumb further to disease fairly quickly. He also understands that with uncontrolled seizures he can have prolonged and permanent brain damage. The patient understood everything that was explained. He was advised if I could be of any further assistance to please let me know. Dr. Fagan thank you very much for placing this consult and allowing me to participate in the care of your patient. Should you have any further questions or concerns please do not hesitate contact me. Helena Ray MD Radiation Oncologist DAVID FRIEDMAN/ANTHONY /3:49 PM /9:54 AM LESLI
== END 2017-02-28 21:24 | disposition home or self-care (01) | DRG 100 ==
LOC: PHEFT 17:48 → PHEDA 20:15 → N03A 23:49 → N05B 02-27 21:41
PROVIDERS: ADMIT Hospitalist; ATTEND Hospitalist
DX: G40.409 Other generalized epilepsy and epileptic syndromes, not intractable, without status epilepticus (principal); G93.6 Cerebral edema; C71.1 Malignant neoplasm of frontal lobe; F17.210 Nicotine dependence, cigarettes, uncomplicated; F41.9 Anxiety disorder, unspecified; Z88.5 Allergy status to narcotic agent
CPT/HCPCS: 70450; 70553; 76937; 80053; 80164; 80185; 80307; 81001; 82948; 83735; 84100; 85025; 85610; 85730; 87641; 93005; 94150; 95819; 96361; 96374; 96375; A9579; J1100; J2060; J7030; Q2009

== ENCOUNTER 2017-06-12 20:55 | Emergency (ER) | payer MEDICARE, MEDICAID ==
[~2017-06-12] VITALS: Ht 167.6 cm; Wt 94.5 kg
[~2017-06-12 20:55] MED LIST changes: -CLIN1CAP6 PO; +DEXA4TAB PO; +DILA100C PO; -DIVA500T PO; -IBUP800T23 PO; +LAMO100 PO; -MAGICADU2 SWISH-SWAL; +NORC5TAB PO; -TOPI200T7 PO; +seizure med
[2017-06-12 21:25] VITALS: BP 141/100; PULSE 118; RESP 18; TEMP 98.1; O2SAT 97
[2017-06-12] MEDS ORDERED: RANI150T PO (21:32)
--- NOTE | 2017-06-12 21:41 | PD ---
HPI Chief Complaint: Respiratory Symptoms Time Seen by Provider: 21:25 Travel History International Travel<30 days: No Contact w/Intl Traveler<30days: No Traveled to known affect area: No History of Present Illness HPI Patient is a 26-year-old male with history of brain cancer currently undergoing radiation treatment - reports that his last radiation treatment was 3 weeks ago. Reports that for the past week, he has had fevers and chills, he reports that he has had myalgias, reports that he has also a productive cough with thick green sputum. Patient reports that his whole family was sick with similar symptoms, reports that his family is improving except for himself. Patient reports that he has been having subjective fevers and chills. Reports that he did receive flu vaccine this year. Reports that he is also been having nausea, vomiting and diarrhea. Patient reports that he doesn't have abdominal pain, but reports cramping with his nausea and vomiting. Reports that he has been unable to keep down any solid foods for the past 2 days, he has been able to drink fluids. Patient denies any recent travels/trips. Patient is a smoker - smokes half a pack of cigarettes per day. PFSH Past Medical History Autoimmune Disease: No Anxiety: Yes Depression: No Cancer: Yes (HEAD) Cardiovascular Problems: No Chemotherapy: No Cerebrovascular Accident: No Diminished Hearing: No Endocrine: No Genitourinary: No Headaches: Yes Musculoskeletal: No Neurologic: Yes Psychiatric: Yes (NICOTINE, ANXIETY) Reproductive: No Respiratory: No Immunizations Current: No Migraines: Yes Radiation Therapy: No Seizures: Yes Tetanus Vaccination: < 5 Years Influenza Vaccination: No Past Surgical History Abdominal Surgery: No Cardiac Surgery: No Ear Surgery: No Endocrine Surgery: No Eye Surgery: No Genitourinary Surgery: No Neurologic Surgery: Yes Oral Surgery: Yes (WISDOM TEETH ) Thoracic Surgery: No Other Surgery: Yes (2004,2012) Social History Alcohol Use: No Tobacco Use: Yes (2 ppd) Substance Use: No Allergies-Medications (Allergen,Severity, Reaction): Coded Allergies: morphine (Unverified Allergy, Unknown, Nausea/Vomiting, 06/12/17) PER PATIENT levetiracetam (Verified Adverse Reaction, Intermediate, patient states worsen seizures, 06/12/17) Reported Meds & Prescriptions Reported Meds & Active Scripts Active Dilantin (Phenytoin Extended) 100 Mg Cap 100 Mg PO Q8HR Reported Ranitidine (Ranitidine HCl) 150 Mg Tab 150 Mg PO BID Review of Systems General / Constitutional: Positive: Fever, Chills Eyes: No: Visual changes HENT: No: Headaches, Vertigo, Lightheadedness Cardiovascular: No: Chest Pain or Discomfort Respiratory: Positive: Cough, Shortness of Breath, No: Wheezing Gastrointestinal: Positive: Nausea, Vomiting, Diarrhea, No: Abdominal Pain, Constipation Genitourinary: No: Urgency, Frequency, Dysuria Musculoskeletal: No: Pain Skin: No Rash Neurologic: No: Weakness, Headache Psychiatric: No: Depression Endocrine: No: Polydipsia Hematologic/Lymphatic: No: Easy Bruising Physical Exam Narrative GENERAL: moderate distress SKIN: Focused skin assessment warm/dry. HEAD: Atraumatic. Normocephalic. EYES: Pupils equal and round. No scleral icterus. No injection or drainage. ENT: No nasal bleeding or discharge. Mucous membranes pink and moist. NECK: Trachea midline. No JVD. CARDIOVASCULAR: Tachycardia. No murmur appreciated. RESPIRATORY: No accessory muscle use. Clear to auscultation. Breath sounds equal bilaterally. GASTROINTESTINAL: Abdomen soft, non-tender, nondistended. Hepatic and splenic margins not palpable. MUSCULOSKELETAL: No obvious deformities. No clubbing. No cyanosis. No edema. NEUROLOGICAL: Awake and alert. No obvious cranial nerve deficits. Motor grossly within normal limits. Normal speech. PSYCHIATRIC: Appropriate mood and affect; insight and judgment normal. Data Data Last Documented VS Vital Signs Date Time Temp Pulse Resp B/P (MAP) Pulse Ox O2 Delivery O2 Flow Rate FiO2 06/12/17 21:27 18 97 Room Air 06/12/17 21:25 98.1 118 141/100 (114) Orders Orders Sepsis Workup Initiated (06/12/17 ) Complete Blood Count With Diff (06/12/17 21:31) Comprehensive Metabolic Panel (06/12/17 21:31) Lactic Acid Sepsis Protocol (06/12/17 21:31) Urinalysis - C+S If Indicated (06/12/17 21:31) Influenzae A/B Antigen (06/12/17 21:31) Blood Culture (06/12/17 21:31) Chest, Single Ap (06/12/17 21:31) Ecg Monitoring (06/12/17 21:31) Iv Access Insert/Monitor (06/12/17 21:31) Oximetry (06/12/17 21:31) Sodium Chlor 0.9% 1000 Ml Inj (Ns 1000 M (06/12/17 21:45) Sodium Chlor 0.9% 1000 Ml Inj (Ns 1000 M (06/12/17 21:45) Ondansetron Inj (Zofran Inj) (06/12/17 21:45) Azithromycin Inj (Zithromax Inj) (06/12/17 22:45) Ceftriaxone Inj (Rocephin Inj) (06/12/17 22:45) Potassium Chloride (Kcl) (06/12/17 22:45) Labs Laboratory Tests Test 06/12/17 21:45 06/12/17 22:25 White Blood Count 7.1 TH/MM3 Red Blood Count 4.04 MIL/MM3 Hemoglobin 12.4 GM/DL Hematocrit 36.8 % Mean Corpuscular Volume 91.1 FL Mean Corpuscular Hemoglobin 30.8 PG Mean Corpuscular Hemoglobin Concent 33.8 % Red Cell Distribution Width 15.1 % Platelet Count 366 TH/MM3 Mean Platelet Volume 6.6 FL Neutrophils (%) (Auto) 74.2 % Lymphocytes (%) (Auto) 13.7 % Monocytes (%) (Auto) 11.4 % Eosinophils (%) (Auto) 0.6 % Basophils (%) (Auto) 0.1 % Neutrophils # (Auto) 5.3 TH/MM3 Lymphocytes # (Auto) 1.0 TH/MM3 Monocytes # (Auto) 0.8 TH/MM3 Eosinophils # (Auto) 0.0 TH/MM3 Basophils # (Auto) 0.0 TH/MM3 CBC Comment DIFF FINAL Differential Comment Blood Urea Nitrogen 4 MG/DL Creatinine 0.69 MG/DL Random Glucose 102 MG/DL Total Protein 6.5 GM/DL Albumin 3.1 GM/DL Calcium Level 8.7 MG/DL Alkaline Phosphatase 100 U/L Aspartate Amino Transf (AST/SGOT) 17 U/L Alanine Aminotransferase (ALT/SGPT) 30 U/L Total Bilirubin 0.4 MG/DL Sodium Level 144 MEQ/L Potassium Level 3.1 MEQ/L Chloride Level 109 MEQ/L Carbon Dioxide Level 28.2 MEQ/L Anion Gap 7 MEQ/L Estimat Glomerular Filtration Rate 137 ML/MIN Lactic Acid Level 1.2 mmol/L Urine Color YELLOW Urine Turbidity CLEAR Urine pH 6.5 Urine Specific Levels 1.025 Urine Protein NEG mg/dL Urine Glucose (UA) NEG mg/dL Urine Ketones NEG mg/dL Urine Occult Blood NEG Urine Nitrite NEG Urine Bilirubin NEG Urine Leukocyte Esterase NEG Urine WBC 0-2 /hpf Urine Squamous Epithelial Cells 0-5 /hpf Urine Mucus FEW /lpf Microscopic Urinalysis Comment CATH-CULT NOT IND MDM Medical Decision Making Medical Screen Exam Complete: Yes Emergency Medical Condition: Yes Medical Record Reviewed: Yes Interpretation(s) Vital Signs Date Time Temp Pulse Resp B/P (MAP) Pulse Ox O2 Delivery O2 Flow Rate FiO2 06/12/17 21:27 18 97 Room Air 06/12/17 21:25 98.1 118 18 141/100 (114) 97 Differential Diagnosis Bronchitis, pneumonia, influenza, viral syndrome, gastroenteritis Narrative Course Patient is a 26-year-old male with history of brain cancer currently undergoing radiation treatment with last treatment 3 weeks ago, presents to emergency room with complaints of one week of fever and chills with myalgias with cough and congestion with nausea and vomiting and diarrhea. Patient reports inability self foods for the past 2 days, reports concern as he is not getting any better. Reports that his whole family is sick with similar symptoms and they have all improved with their symptoms but himself. Patient is tachycardic while emergency room, sepsis workup was initiated. During the course of the patients emergency department visit, the patients history, examination, and differential diagnosis were reviewed with the patient. The patient was placed on a patient monitor with oximetry and frequent blood pressure monitoring. The patient had an IV access obtained and blood work sent for analysis. The patient was initially provided IVF. The patients laboratory studies were reviewed and remarkable for: Laboratory Tests Test 06/12/17 21:45 06/12/17 22:25 White Blood Count 7.1 TH/MM3 (4.0-11.0) Red Blood Count 4.04 MIL/MM3 (4.50-5.90) Hemoglobin 12.4 GM/DL (13.0-17.0) Hematocrit 36.8 % (39.0-51.0) Mean Corpuscular Volume 91.1 FL (80.0-100.0) Mean Corpuscular Hemoglobin 30.8 PG (27.0-34.0) Mean Corpuscular Hemoglobin Concent 33.8 % (32.0-36.0) Red Cell Distribution Width 15.1 % (11.6-17.2) Platelet Count 366 TH/MM3 (150-450) Mean Platelet Volume 6.6 FL (7.0-11.0) Neutrophils (%) (Auto) 74.2 % (16.0-70.0) Lymphocytes (%) (Auto) 13.7 % (9.0-44.0) Monocytes (%) (Auto) 11.4 % (0.0-8.0) Eosinophils (%) (Auto) 0.6 % (0.0-4.0) Basophils (%) (Auto) 0.1 % (0.0-2.0) Neutrophils # (Auto) 5.3 TH/MM3 (1.8-7.7) Lymphocytes # (Auto) 1.0 TH/MM3 (1.0-4.8) Monocytes # (Auto) 0.8 TH/MM3 (0-0.9) Eosinophils # (Auto) 0.0 TH/MM3 (0-0.4) Basophils # (Auto) 0.0 TH/MM3 (0-0.2) CBC Comment DIFF FINAL Differential Comment Blood Urea Nitrogen 4 MG/DL (7-18) Creatinine 0.69 MG/DL (0.60-1.30) Random Glucose 102 MG/DL (74-106) Total Protein 6.5 GM/DL (6.4-8.2) Albumin 3.1 GM/DL (3.4-5.0) Calcium Level 8.7 MG/DL (8.5-10.1) Alkaline Phosphatase 100 U/L (45-117) Aspartate Amino Transf (AST/SGOT) 17 U/L (15-37) Alanine Aminotransferase (ALT/SGPT) 30 U/L (12-78) Total Bilirubin 0.4 MG/DL (0.2-1.0) Sodium Level 144 MEQ/L (136-145) Potassium Level 3.1 MEQ/L (3.5-5.1) Chloride Level 109 MEQ/L (98-107) Carbon Dioxide Level 28.2 MEQ/L (21.0-32.0) Anion Gap 7 MEQ/L (5-15) Estimat Glomerular Filtration Rate 137 ML/MIN (>89) Lactic Acid Level 1.2 mmol/L (0.4-2.0) Urine Color YELLOW (YELLW/STRAW) Urine Turbidity CLEAR (CLEAR) Urine pH 6.5 (5.0-8.5) Urine Specific Levels 1.025 (1.002-1.035) Urine Protein NEG mg/dL (NEG-TRACE) Urine Glucose (UA) NEG mg/dL (NEG) Urine Ketones NEG mg/dL (NEG) Urine Occult Blood NEG (NEG) Urine Nitrite NEG (NEG) Urine Bilirubin NEG (NEG) Urine Leukocyte Esterase NEG (NEG) Urine WBC 0-2 /hpf (0-5) Urine Squamous Epithelial Cells 0-5 /hpf (0-5) Urine Mucus FEW /lpf (OCC) Microscopic Urinalysis Comment CATH-CULT NOT IND Radiology studies were reviewed and remarkable for: Last Impressions Chest X-Ray 06/12/172130 Signed Impressions: Service Date/Time: Saturday, June 12, 2017 21:36 - CONCLUSION: 1. No acute cardiopulmonary disease. Oscar King MD Patient has been pancultured, labs and studies have been reviewed. Microbiology Date/Time Source Procedure Growth Status 06/12/17 21:45 Blood Peripheral Aerobic Blood Culture Pending Received 06/12/17 21:45 Blood Peripheral Anaerobic Blood Culture Pending Received 06/12/17 21:35 Blood Peripheral Aerobic Blood Culture Pending Received 06/12/17 21:35 Blood Peripheral Anaerobic Blood Culture Pending Received 06/12/17 21:38 Nasal Aspirate Influenza Types A,B Antigen (LAYA) - Final NEGATIVE FOR FLU A AND B ANTIGEN.... Complete Influenza is negative for A & B. Patient with most likely bronchitis. Patient has been pancultured, has been given a dose of Rocephin as well as azithromycin. Plan to treat with augmentin. Patient will follow-up with his primary care doctor and will return to the emergency room as needed. Diagnosis Primary Impression: Bronchitis Patient Instructions: General Instructions Additional Instructions: Please provide patient with a copy of their lab work and studies at discharge* * Please follow up with your primary care doctor in 2-3 days Return to the ER if symptoms worsen or progress Return to the ER as needed Please take all antibiotics as prescribed Please follow up with all cultures from today Drink plenty of fluids Med/Other Pt SpecificInfo: Prescription(s) given Scripts Amoxicillin-Clavulanate (Augmentin) 875-125 Mg Tab 1 TAB PO BID for Infection for 10 Days, #20 TAB 0 Refills Prov: Antonia Villareal DO 06/12/17 Disposition: 01 DISCHARGE HOME Condition: Stable Antonia Villareal DO Jun 12, 2017 21:41
[2017-06-12] MEDS ORDERED: SODIUM CHLOR 0.9% 1000 ML INJ 1,000 ML IV ONE ×2 (21:45)
[2017-06-12] MEDS ORDERED: ONDANSETRON HCL 4 MG/2 ML VIAL IV PUSH ONE (21:45)
[2017-06-12 22:01] LABS: AUTOMATED NEUTROPHIL # 5.3 TH/MM3 (1.8-7.7); BASOPHIL % 0.1 % (0.0-2.0); EOSINOPHIL % 0.6 % (0.0-4.0); HEMATOCRIT 36.8 % (39.0-51.0); HEMOGLOBIN 12.4 GM/DL (13.0-17.0); LYMPH % 13.7 % (9.0-44.0); MEAN CELL VOLUME 91.1 FL (80.0-100.0); MEAN CORPUSCULAR HEMOGLOBIN 30.8 PG (27.0-34.0); MEAN CORPUSCULAR HGB CONC 33.8 % (32.0-36.0); MEAN PLATELET VOLUME 6.6 FL (7.0-11.0); MONO % 11.4 % (0.0-8.0); MONOCYTE # 0.8 TH/MM3 (0-0.9); NEUT % 74.2 % (16.0-70.0); PLATELET COUNT 366 TH/MM3 (150-450); RED BLOOD COUNT 4.04 MIL/MM3 (4.50-5.90); RED CELL DISTRIBUTION WIDTH 15.1 % (11.6-17.2); WHITE BLOOD COUNT 7.1 TH/MM3 (4.0-11.0)
--- NOTE | 2017-06-12 22:01 | RADRPT ---
EXAM DATE/TIME: 06/12/2017 21:36 [facility] COMPARISON: No previous studies available for comparison. INDICATIONS : Cough. MEDICAL HISTORY : Seizures. Brain tumor. SURGICAL HISTORY : Craniotomy. ENCOUNTER: Initial ACUITY: 1 day PAIN SCORE: 0/10 LOCATION: Bilateral chest FINDINGS: A single view of the chest demonstrates the lungs to be symmetrically aerated without evidence of mas s, infiltrate or effusion. The cardiomediastinal contours are unremarkable. Osseous structures are intact. CONCLUSION: 1. No acute cardiopulmonary disease. Oscar King MD on June 12, 2017 at 21:59 Board Certified Radiologist. This report was verified electronically.
[2017-06-12 22:14] LABS: CHLORIDE 109 MEQ/L (98-107); SODIUM (NA) 144 MEQ/L (136-145)
[2017-06-12 22:17] LABS: ALBUMIN 3.1 GM/DL (3.4-5.0); BICARBONATE 28.2 MEQ/L (21.0-32.0); BLOOD UREA NITROGEN 4 MG/DL (7-18); CALCIUM 8.7 MG/DL (8.5-10.1); GLUCOSE,RANDOM 102 MG/DL (74-106)
[2017-06-12 22:20] LABS: ALT (GPT) 30 U/L (12-78); AST (GOT) 17 U/L (15-37)
[2017-06-12 22:21] LABS: CREATININE 0.69 MG/DL (0.60-1.30); GLOMERULAR FILTRATION RATE 137 ML/MIN (>89)
[2017-06-12 22:22] LABS: TOTAL BILIRUBIN ADULT 0.4 MG/DL (0.2-1.0); TOTAL PROTEIN 6.5 GM/DL (6.4-8.2)
[2017-06-12 22:23] LABS: ALKALINE PHOSPHATASE 100 U/L (45-117)
[2017-06-12 22:31] LABS: BILIRUBIN, URINE NEG (NEG); BLOOD, URINE NEG (NEG); GLUCOSE,URINE NEG (NEG); KETONE, URINE NEG (NEG); NITRITE,URINE NEG (NEG); PH, URINE 6.5 (5.0-8.5); URINE LEUKOCYTE ESTERASE NEG (NEG)
[2017-06-12] MEDS ORDERED: POTASSIUM CHLORIDE 10 MEQ CONTROLLED RELEASE TAB PO ONE (22:45)
[2017-06-12] MEDS ORDERED: cefTRIAXone INJ 1,000 MG in SODIUM CHLORIDE 0.9% INJ 100 ML IV ONE (22:45)
[2017-06-12] MEDS ORDERED: AZITHROMYCIN INJ 500 MG in SODIUM CHLOR 0.9% 250 ML INJ 250 ML IV ONE (22:45)
[2017-06-12 22:49] LABS: URINE COLOR YELLOW (YELLW/STRAW)
[2017-06-12 22:50] LABS: MUCUS URINE FEW /lpf (OCC); SQUAMOUS EPITHELIAL CELL URINE 0-5 /hpf (0-5); WBC, URINE 0-2 /hpf (0-5)
[2017-06-12] MEDS ORDERED: AUGM875T3 PO (23:04)
[2017-06-12 23:06] VITALS: BP 121/74; PULSE 91; RESP 18; TEMP 98.4; O2SAT 97
[2017-06-12 23:07] VITALS: RESP 18; O2SAT 97
[2017-06-12] MEDS ORDERED: ACETAMINOPHEN 325 MG TAB PO ONE (23:15)
[2017-06-13 00:03] VITALS: RESP 18
[2017-06-13 00:26] VITALS: BP 122/76
== END 2017-06-13 00:28 | disposition home or self-care (01) ==
LOC: PHEFT 20:55
DX: J40 Bronchitis, not specified as acute or chronic (principal); R11.2 Nausea with vomiting, unspecified; M79.1 Myalgia; R19.7 Diarrhea, unspecified; R00.0 Tachycardia, unspecified; Z85.3 Personal history of malignant neoplasm of breast
CPT/HCPCS: 71010; 80053; 81001; 83605; 85025; 87040; 87804; 96361; 96365; 96375; 99284; J0456; J2405; J7030; J7050